=== PATIENT | male | born 1970 | race Caucasian/White ===

== ENCOUNTER 2022-08-03 15:29 | Observation (INO) | payer BC ==
[2022-08-03] MEDS ORDERED: FUROSEMIDE 40 MG/4 ML VIAL ONE ×2 (16:21)
[2022-08-03 16:32] LABS: Absolute Lymphocytes (CBC) 1.1 K/uL (0.7-4.9); Hematocrit 33.4 % (39.6-49.0); Lymphocytes % 20.5 % (15.3-44.8); MCV 86.1 fL (80-100); MPV 6.4 fL (7.6-11.3); RBC Red Blood Cell Count 3.88 M/uL (4.33-5.43)
[2022-08-03 16:33] LABS: Protime INR 1.28
--- NOTE | 2022-08-03 16:41 | RAD REPORT ---
EXAM DESCRIPTION: RAD - Chest Single View - 08/03/2022 4:25 pm CLINICAL HISTORY: DYSPNEA COMPARISON: No comparisons FINDINGS: Lines: None. Lungs: Diffuse prominence of the pulmonary vasculature. Pleural: No significant pleural effusions or pneumothorax. Cardiac: Cardiomegaly. Mediastinum: Within normal limits. Bones: No acute fractures. Other: None IMPRESSION: Interstitial edema/congestive heart failure.
[2022-08-03 16:49] LABS: Albumin 3.3 g/dL (3.4-5.0); Bilirubin Direct 0.5 mg/dL (0-0.2); Bilirubin Total 0.9 mg/dL (0.2-1.0); Potassium 4.1 mmol/L (3.5-5.1); Protein, Total 9.1 g/dL (6.4-8.2); Troponin High Sensitivity 24.7 pg/mL (<58.9)
--- NOTE | 2022-08-03 18:01 | EDPHYS ---
Physician Documentation [facility] Name: Salvador Catherine Jr Age: 51 yrs Sex: Male : 1970 Arrival Date: 08/03/2022 Time: 15:30 Bed 16 Private MD: ED Physician Davian Jonas HPI: 08/03 18:01 This 51 yrs old Male presents to ER via Ambulatory with complaints of Shortness Of kdr Breath, swelling all over. 18:01 Patient states that when he awoke this morning, he felt that he was in atrial kdr fibrillation. This occurs periodically. Normally he was able to partake in various activities that will convert him back to a normal sinus rhythm however that has not occurred today he attempted to mow the grass, on a riding mower, without conversion. He also tried taking a walk and other activities but was unable to convert himself back to what he felt was a normal sinus rhythm.. Onset: The symptoms/episode began/occurred suddenly, this morning, and became persistent. Severity of symptoms: At their worst the symptoms were mild in the emergency department the symptoms are unchanged. The patient has experienced similar episodes in the past, multiple times, but today's symptoms are worse, lasting longer. The patient has not recently seen a physician. Historical: - Allergies: 15:48 No Known Allergies; kb3 - Home Meds: 15:48 Lasix 40 mg Oral tab 1 tab once daily [Active]; spironolactone 25 mg Oral tab 1 tab kb3 once daily [Active]; - PMHx: 15:49 Atrial fibrillation; Bialteral leg edema; Covid; kb3 - PSHx: 15:49 None; kb3 - Immunization history:: Adult Immunizations up to date, Client reports having NOT received the Covid vaccine. Last tetanus immunization: up to date. - Social history:: Smoking status: Patient denies any tobacco usage or history of. ROS: 18:01 Constitutional: Negative for fever, chills, and weight loss, Eyes: Negative for injury, kdr pain, redness, and discharge, ENT: Negative for injury, pain, and discharge, Neck: Negative for injury, pain, and swelling, Abdomen/GI: Negative for abdominal pain, nausea, vomiting, diarrhea, and constipation, Back: Negative for injury and pain, : Negative for injury, bleeding, discharge, and swelling, MS/Extremity: Negative for injury and deformity, Skin: Negative for injury, rash, and discoloration, Neuro: Negative for headache, weakness, numbness, tingling, and seizure activity. Psych: Negative for depression, anxiety, suicide ideation, homicidal ideation, and hallucinations, Allergy/Immunology: Negative for hives, rash, and allergies, Endocrine: Negative for neck swelling, polydipsia, polyuria, polyphagia, and marked weight changes, Hematologic/Lymphatic: Negative for swollen nodes, abnormal bleeding, and unusual bruising. 18:01 Cardiovascular: Positive for palpitations, Negative for chest pain, edema, orthopnea. 18:01 Respiratory: Positive for shortness of breath, on exertion. Exam: 15:57 Constitutional: This is a well developed, well nourished patient who is awake, alert, kdr and in no acute distress. Head/Face: Normocephalic, atraumatic. Eyes: Pupils equal round and reactive to light, extra-ocular motions intact. Lids and lashes normal. Conjunctiva and sclera are non-icteric and not injected. Cornea within normal limits. Periorbital areas with no swelling, redness, or edema. Neck: Trachea midline, no thyromegaly or masses palpated, and no cervical lymphadenopathy. Supple, full range of motion without nuchal rigidity, or vertebral point tenderness. No Meningismus. Chest/axilla: Normal chest wall appearance and motion. Nontender with no deformity. No lesions are appreciated. Respiratory: Lungs have equal breath sounds bilaterally, clear to auscultation and percussion. No rales, rhonchi or wheezes noted. No increased work of breathing, no retractions or nasal flaring. Abdomen/GI: Soft, non-tender, with normal bowel sounds. No distension or tympany. No guarding or rebound. No evidence of tenderness throughout. Back: No spinal tenderness. No costovertebral tenderness. Full range of motion. Skin: Warm, dry with normal turgor. Normal color with no rashes, no lesions, and no evidence of cellulitis. MS/ Extremity: Pulses equal, no cyanosis. Neurovascular intact. Full, normal range of motion. Neuro: Awake and alert, GCS 15, oriented to person, place, time, and situation. Cranial nerves II-XII grossly intact. Motor strength 5/5 in all extremities. Sensory grossly intact. Cerebellar exam normal. Normal gait. Psych: Awake, alert, with orientation to person, place and time. Behavior, mood, and affect are within normal limits. 15:57 ECG was reviewed by the Attending Physician. Vital Signs: 15:47 BP 158 / 70; Pulse 119; Resp 24; Temp 98; Pulse Ox 100% ; Weight 131.54 kg; Height 5 kb3 ft. 10 in. (177.80 cm); Pain 0/10; 16:45 BP 134 / 78; Pulse 116; Resp 22; Pulse Ox 100% on R/A; kr3 17:45 BP 126 / 82; Pulse 110; Resp 22; Pulse Ox 100% on R/A; kr3 18:45 BP 129 / 85; Pulse 114; Resp 22; Pulse Ox 100% on R/A; kr3 20:23 BP 143 / 77; Pulse 107; Resp 22; Pulse Ox 100% on R/A; Pain 0/10; ke1 15:47 Body Mass Index 41.61 (131.54 kg, 177.80 cm) kb3 MDM: 18:00 Patient medically screened. kdr 18:01 Data reviewed: vital signs, nurses notes, lab test result(s), EKG, radiologic studies. kdr Counseling: I had a detailed discussion with the patient and/or guardian regarding: the historical points, exam findings, and any diagnostic results supporting the discharge/admit diagnosis, lab results, radiology results. 08/03 15:56 Order name: Basic Metabolic Panel [facility] 08/03 15:56 Order name: CBC with Diff [facility] 08/03 15:56 Order name: LFT's [facility] 08/03 15:56 Order name: NT PRO-BNP [facility] 08/03 15:56 Order name: PT-INR [facility] 08/03 15:56 Order name: Troponin HS [facility] 08/03 16:33 Order name: Protime (+INR); Complete Time: 17:57 EDMS 08/03 16:37 Order name: CBC with Automated Diff; Complete Time: 17:57 EDMS 08/03 16:49 Order name: Basic Metabolic Panel; Complete Time: 17:57 EDMS 08/03 16:49 Order name: Liver (Hepatic) Function; Complete Time: 17:57 EDMS 08/03 16:49 Order name: Troponin High Sensitivity; Complete Time: 17:57 EDMS 08/03 16:49 Order name: NT PRO-BNP; Complete Time: 17:57 EDMS 08/03 18:25 Order name: COVID-19 SARS RT PCR (Document "Date of Onset" if Symptomatic) 08/03 20:24 Order name: SARS-COV-2 RT PCR EDMS 08/03 15:56 Order name: XRAY Chest (1 view) [facility] 08/03 15:56 Order name: EKG; Complete Time: 15:58 [facility] 08/03 15:56 Order name: Cardiac monitoring; Complete Time: 20:24 [facility] 08/03 15:56 Order name: EKG - Nurse/Tech; Complete Time: 15:59 [facility] 08/03 15:56 Order name: IV Saline Lock; Complete Time: 16:18 [facility] 08/03 15:56 Order name: Labs collected and sent; Complete Time: 16:18 [facility] 08/03 15:56 Order name: O2 Per Protocol; Complete Time: 20:24 [facility] 08/03 15:56 Order name: O2 Sat Monitoring; Complete Time: 20:24 [facility] 08/03 16:41 Order name: RAD; Complete Time: 17:57 EDMS EC:57 Rate is 120 beats/min. Rhythm is regular, Sinus tachycardia with No ectopy. QRS Vassar is kdr Normal. IA interval is normal. QRS interval is normal. Clinical impression: Sinus tachycardia. Administered Medications: 16:47 Drug: Lasix (furosemide) 80 mg Route: IVP; Site: right antecubital; kr3 18:55 Follow up: Response: No adverse reaction kr3 20:30 Drug: Metoprolol TARTRATE 50 mg Route: PO; ke1 Disposition Summary: 08/03/22 18:00 Hospitalization Ordered Hospitalization Status: Observation kdr Provider: Esdras Infante Location: Telemetry/MedSurg (observation) kdr Condition: Fair kdr Problem: an acute exacerbation kdr Symptoms: have improved kdr Bed/Room Type: Standard kdr Room Assignment: 424(08/03/22 20:42) cg Diagnosis - Heart failure, unspecified kdr Forms: - Medication Reconciliation Form kdr - SBAR form kdr Signatures: Dispatcher [employer] EDMT Davian Jonas MD MD kdr Alexander Bhandari, LEMUEL-C [employer] [id number] Jacklyn Epps, PIPPA RN Russell Merino RN RN ke1 Sophy Prince, RN RN kr3 Sobia Lange, RN RN kb3 Corrections: (The following items were deleted from the chart) 18:04 18:00 Persistent atrial fibrillation - With rapid ventricular response kdr kdr 20:42 18:00 kdr cg
--- NOTE | 2022-08-03 18:01 | ER ---
Nurse's Notes [facility] Name: Salvador Catherine Jr Age: 51 yrs Sex: Male : 1970 Arrival Date: 08/03/2022 Time: 15:30 Bed 16 Private MD: Diagnosis: Heart failure, unspecified Presentation: 08/03 15:47 Chief complaint: Patient states: Pt reports increased generalized swelling, more so in kb3 bilateral legs, face and abdomen x1 week with associated increased SOB. Denies CP, cough, congestion. Coronavirus screen: Vaccine status: Patient reports being unvaccinated. Client denies travel out of the [place] in the last 14 days. Ebola Screen: Patient negative for fever greater than or equal to 101.5 degrees Fahrenheit, and additional compatible Ebola Virus Disease symptoms Patient denies exposure to infectious person. Patient denies travel to an Ebola-affected area in the 21 days before illness onset. No symptoms or risks identified at this time. Initial Sepsis Screen: Does the patient meet any 2 criteria? No. Patient's initial sepsis screen is negative. Does the patient have a suspected source of infection? No. Patient's initial sepsis screen is negative. Risk Assessment: Do you want to hurt yourself or someone else? Patient reports no desire to harm self or others. Onset of symptoms was July 27, 2022. 15:47 Method Of Arrival: Ambulatory 3 15:47 Acuity: YULY 3 kb3 Triage Assessment: 15:49 General: Appears in no apparent distress. Behavior is calm, cooperative. Pain: Denies kb3 pain. Respiratory: Reports shortness of breath Onset: The symptoms/episode began/occurred gradually, the patient has mild shortness of breath. Historical: - Allergies: 15:48 No Known Allergies; kb3 - Home Meds: 15:48 Lasix 40 mg Oral tab 1 tab once daily [Active]; spironolactone 25 mg Oral tab 1 tab kb3 once daily [Active]; - PMHx: 15:49 Atrial fibrillation; Bialteral leg edema; Covid; kb3 - PSHx: 15:49 None; kb3 - Immunization history:: Adult Immunizations up to date, Client reports having NOT received the Covid vaccine. Last tetanus immunization: up to date. - Social history:: Smoking status: Patient denies any tobacco usage or history of. Screenin:55 Abuse screen: Denies threats or abuse. Nutritional screening: No deficits noted. kr3 Tuberculosis screening: No symptoms or risk factors identified. Fall Risk IV access (20 points). Total Boothe Fall Scale indicates No Risk (0-24 pts). Assessment: 16:47 Reassessment: No changes from previously documented assessment. Patient and/or family kr3 updated on plan of care and expected duration. Pain level reassessed. Cardiovascular: Reports shortness of breath. Respiratory: Airway is patent Respiratory effort is labored. 17:45 Reassessment: No changes from previously documented assessment. Patient and/or family kr3 updated on plan of care and expected duration. Pain level reassessed. 18:54 Reassessment: No changes from previously documented assessment. Patient and/or family kr3 updated on plan of care and expected duration. Pain level reassessed. Vital Signs: 15:47 BP 158 / 70; Pulse 119; Resp 24; Temp 98; Pulse Ox 100% ; Weight 131.54 kg; Height 5 kb3 ft. 10 in. (177.80 cm); Pain 0/10; 16:45 BP 134 / 78; Pulse 116; Resp 22; Pulse Ox 100% on R/A; kr3 17:45 BP 126 / 82; Pulse 110; Resp 22; Pulse Ox 100% on R/A; kr3 18:45 BP 129 / 85; Pulse 114; Resp 22; Pulse Ox 100% on R/A; kr3 20:23 BP 143 / 77; Pulse 107; Resp 22; Pulse Ox 100% on R/A; Pain 0/10; ke1 15:47 Body Mass Index 41.61 (131.54 kg, 177.80 cm) kb3 ED Course: 15:30 Patient arrived in ED. am2 15:31 Davian Jonas MD is Attending Physician. kdr 15:40 Sophy Prince RN is Primary Nurse. kr3 15:48 Triage completed. kb3 15:49 Arm band placed on right wrist. Patient placed in an exam room. kb3 15:59 EKG done, by ED staff, reviewed by Davian Jonas MD. ss 16:16 Inserted saline lock: 22 gauge in right antecubital area, using aseptic technique. kr3 Blood collected. 18:00 Esdras Infante MD is Hospitalizing Provider. kdr 18:56 COVID-19 SARS RT PCR (Document "Date of Onset" if Symptomatic) Sent. kr3 19:33 Primary Nurse role handed off by Sophy Prince RN 19:43 Russell Lambert, PIPPA is Primary Nurse. ke1 Administered Medications: 16:47 Drug: Lasix (furosemide) 80 mg Route: IVP; Site: right antecubital; kr3 18:55 Follow up: Response: No adverse reaction kr3 20:30 Drug: Metoprolol TARTRATE 50 mg Route: PO; ke1 Outcome: 18:00 Decision to Hospitalize by Provider. kdr 21:52 Patient left the ED. ke1 Signatures: Davian Jonas MD MD [facility] Yoselin Gutierrez RN RN ss Moreno, Amanda am2 Marsh, Wendy Russell Lambert RN RN ke1 Sophy Prince, RN RN kr3 Sobia Lange RN RN kb3
--- NOTE | 2022-08-03 19:26 | P.HP ---
Certification for Inpatient Patient admitted to: Observation With expected LOS: <2 Midnights Patient will require the following post-hospital care: None Practitioner: I am a practitioner with admitting privileges, knowledge of patient current condition, hospital course, and medical plan of care. Services: Services provided to patient in accordance with Admission requirements found in Title 42 Section 412.3 of the Code of Federal Regulations Patient History Date of Service: 08/03/22 Primary Care Provider: None Reason for admission: CHF exacerbation History of Present Illness: 51-year-old male with history of chronic CHFunknown EF presents to the emergency department for swelling/dyspnea. He reports a known history of CHF but does not know what his ejection fraction is he is currently taking Lasix 40 mg daily as well as spironolactone 25 mg daily, he reports he has been compliant with his medications although over the course of the last week or so he has noticed significant increase in swelling in his lower extremities, face and abdomen. He is evaluated in the emergency department his labs were significant for sodium of 129 chloride of 93 glucose 149 D bili 0.5 BNP 245 chest x-ray was obtained which revealed interstitial edema/congestive heart failure. Patient currently on room air saturating well doing okay at rest but has dyspnea on exertion and significant edema. ED provider wishes to admit under observation for CHF exacerbation. Upon further questioning patient also admits to drinking approximately 30 beers per day, his last drink was around noon today and he has had between 6 and 8 beers today. We will monitor closely for signs of alcohol withdrawal. 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 moist/pink, EOMI, Sclerae nonicteric Neck: Supple, 2+ carotid pulse no bruit, No LAD, Without JVD or thyroid abnormality Respiratory: Diminished, Crackles/rales Cardiovascular: Regular rate/rhythm, Normal S1 S2, Edema (Anasarca, edema to the face, abdomen and lower extremities) Capillary refill: <2 Seconds Gastrointestinal: Normal bowel sounds, No tenderness Musculoskeletal: No tenderness Integumentary: No rashes Neurological: Normal speech, Normal strength at 5/5 x4 extr, Normal tone, Normal affect - Studies Laboratory Data (last 24 hrs) 08/03/22 16:10: PT 14.1 H, INR 1.28 08/03/22 16:10: WBC 5.40, Hgb 11.2 L, Hct 33.4 L, Plt Count 120 L 08/03/22 16:10: Sodium 129 L, Potassium 4.1, BUN 8, Creatinine 1.02, Glucose 149 H, Total Bilirubin 0.9, AST 42 H, ALT 33, Alkaline Phosphatase 119 H Assessment and Plan - Plan Assessment: Acute on chronic CHFunknown EF Mild hyponatremia Alcohol use disorder Plan: Acute on chronic CHFunknown EF: Unknown EF, patient recently moved back to the area from [facility]. Increase Lasix to 40 mg IV twice daily continue spironolactone. Patient also admits to drinking approximately 30 beers per day, he was counseled extensively on the need for alcohol cessation and the volume of fluids that he is taking in the excessive. We will monitor on telemetry, attempt obtain echocardiogram. Cardiology consult in place. Mild hyponatremia: Likely related to volume overload/alcohol use disorder. Continue IV Lasix monitor sodium level daily. Alcohol use disorder: Patient generally drinks about 30 beers per day his last drink was today around noon he has had about 6-8 beers today. Will monitor for signs of alcohol withdrawal and provide with as needed Librium for the time being. Patient counseled extensively on the need for alcohol cessation especially given his heart disease. DVT PPX: Lovenox Code status: Full Discharge Plan: Home Plan to discharge in: 24 Hours - Advance Directives Does patient have a Living Will: No Does patient have a Durable POA for Healthcare: No - Code Status/Comfort Care Code Status Assessed: Yes (Full code) Critical Care: No Time Spent Managing Pts Care (In Minutes): 70
[2022-08-03] MEDS ORDERED: chlordiazePOXIDE HCl 5 MG CAP PO PRN (19:51)
[2022-08-03] MEDS ORDERED: ONDANSETRON 4 MG/2 ML VIAL IV PRN (19:51)
[2022-08-03] MEDS ORDERED: METOPROLOL TAR 50 MG TAB ONE (20:26)
[2022-08-03 22:53] VITALS: BMI 58.5
[2022-08-04 06:39] LABS: Absolute Lymphocytes (CBC) 0.9 K/uL (0.7-4.9); Hematocrit 33.4 % (39.6-49.0); Lymphocytes % 14.9 % (15.3-44.8); MCV 88.1 fL (80-100); MPV 6.4 fL (7.6-11.3); RBC Red Blood Cell Count 3.79 M/uL (4.33-5.43)
[2022-08-04 07:02] LABS: Albumin 3.1 g/dL (3.4-5.0); Bilirubin Total 1.1 mg/dL (0.2-1.0); Magnesium 1.9 mg/dL (1.8-2.4); Potassium 4.1 mmol/L (3.5-5.1); Protein, Total 8.5 g/dL (6.4-8.2)
[2022-08-04 07:04] LABS: Thyroid Stimulating Hormone 4.39 uIU/mL (0.360-3.740)
[2022-08-04] MEDS ORDERED: ENOXAPARIN 40 MG/0.4 ML SQ SCH (09:00)
[2022-08-04] MEDS ORDERED: METOPROLOL TAR 50 MG TAB PO SCH (09:00)
[2022-08-04] MEDS ORDERED: SPIRONOLACTONE 25 MG TABLET PO SCH (09:00)
[2022-08-04] MEDS ORDERED: FUROSEMIDE 40 MG/4 ML VIAL IV SCH (09:00)
[2022-08-04 10:14] VITALS: O2SAT 100
[2022-08-04 11:34] VITALS: BP 132/68; TEMP 98.2
[2022-08-04] MEDS ORDERED: INFLUENZA VACCINE (for 6+ mo) 0.5 ML DOSE IMVAC ONE (12:00)
--- NOTE | 2022-08-04 13:06 | P.DS ---
Admission Date: 08/03/22 Discharge Date: 08/04/22 Primary Care Provider: None Disposition: ROUTINE DISCHARGE Discharge Condition: GOOD Reason for Admission: CHF exacerbation Consultations: CardiologyDr. Holloway Brief History of Present Illness: 51yo M, PMH: A. fib/a flutter , chronic CHF- unknown EF, untreated RACHEL, presented to ED due to swelling/dyspnea over last 1 week despite taking his chronic meds (lasix/spironolactone). Patient states this began 1 week ago shortly after starting antibiotics (Bactrim, ciprofloxacin) for a toe laceration. He denies any fevers/chills, no diarrhea, no nausea. Work-up in the ED noted mild hyponatremia, chest x-ray with some mild interstitial edema. He reported drinking 30 beers per day. Hospital Course: Problem list aflutter Acute on chronic CHFunknown EF Mild hyponatremia Alcohol use disorder untreated sleep apnea Patient presented with shortness of breath and increased lower extremity swelling. He was found to be in atrial flutter with HR in 120s. Heart rate improved with metoprolol down to 70-80s. He was given IV Lasix and Cardiology consulted. Patient was breathing comfortably on room air at rest with SpO2 > 99% Deemed stable for discharge home. Medications changed per Cardiology recommendations New: Metoprolol 50mg twice daily Eliquis 5mg twice daily Increased lasix from 40mg daily to twice daily Continue spironolactone 25mg daily Follow up: PCP within [address] Holloway in 1-2 weeks. Will need outpatient echocardiogram Recommend to discuss with PCP or see Sleep/[employer] Systems Administrator (Dr. Watkins) for updated sleep study and subsequent CPAP prescription Previously diagnosed with severe sleep apnea, and currently does not have CPAP machine. Vital Signs/Physical Exam: Temp Pulse Resp BP Pulse Ox 98.2 F 72 16 132/68 93 08/04/22 11:33 08/04/22 11:33 08/04/22 11:33 08/04/22 11:33 08/04/22 11:33 General: Alert, In no apparent distress, Oriented x3 HEENT: EOMI, Sclerae nonicteric Respiratory: Diminished Cardiovascular: Edema, Irregular heart rate/rhythm Gastrointestinal: Soft and benign, Non-distended, No tenderness Integumentary: No significant lesion, No tenderness/swelling Neurological: Normal speech, Normal strength at 5/5 x4 extr, Normal affect Laboratory Data at Discharge: WBC 6.00 K/uL (4.3-10.9) 08/04/22 05:43 Hgb 10.8 g/dL (13.6-17.9) L 08/04/22 05:43 Hct 33.4 % (39.6-49.0) L 08/04/22 05:43 Plt Count 109 K/uL (152-406) L 08/04/22 05:43 PT 14.1 SECONDS (9.5-12.5) H 08/03/22 16:10 INR 1.28 08/03/22 16:10 Sodium 130 mmol/L (136-145) L 08/04/22 05:43 Potassium 4.1 mmol/L (3.5-5.1) 08/04/22 05:43 BUN 13 mg/dL (7-18) 08/04/22 05:43 Creatinine 1.06 mg/dL (0.55-1.3) 08/04/22 05:43 Glucose 110 mg/dL (74-106) H 08/04/22 05:43 Magnesium 1.9 mg/dL (1.8-2.4) 08/04/22 05:43 Total Bilirubin 1.1 mg/dL (0.2-1.0) H 08/04/22 05:43 AST 38 U/L (15-37) H 08/04/22 05:43 ALT 28 U/L (12-78) 08/04/22 05:43 Alkaline Phosphatase 109 U/L (45-117) 08/04/22 05:43 Triglycerides 56 mg/dL (<150) 08/04/22 05:43 Cholesterol 161 mg/dL (<200) 08/04/22 05:43 HDL Cholesterol 79 mg/dL (40-60) H 08/04/22 05:43 Cholesterol/HDL Ratio 2.04 08/04/22 05:43 Home Medications: Spironolactone 1 tab PO DAILY 08/03/22 Apixaban [Eliquis] 5 mg PO BID 30 Days #60 tab 08/04/22 Furosemide [Lasix] 1 tab PO BID 30 Days #60 tab 08/04/22 Metoprolol Tartrate [Lopressor*] 50 mg PO BID 30 Days #60 tab 08/04/22 New Medications: Apixaban [Eliquis] 5 mg PO BID 30 Days #60 tab Furosemide [Lasix] 1 tab PO BID 30 Days #60 tab Metoprolol Tartrate [Lopressor*] 50 mg PO BID 30 Days #60 tab Physician Discharge Instructions: Patient presented with shortness of breath and increased lower extremity swelling. He was found to be in atrial flutter with HR in 120s. Heart rate improved with metoprolol down to 70-80s. He was given IV Lasix and Cardiology consulted. Patient was breathing comfortably on room air at rest with SpO2 > 99% Deemed stable for discharge home. Medications changed per Cardiology recommendations New: Metoprolol 50mg twice daily Eliquis 5mg twice daily Increased lasix from 40mg daily to twice daily Continue spironolactone 25mg daily Follow up: PCP within [address] Holloway in 1-2 weeks. Will need outpatient echocardiogram Recommend to discuss with PCP or see Sleep/[employer] Systems Administrator (Dr. Watkins) for updated sleep study and subsequent CPAP prescription Previously diagnosed with severe sleep apnea, and currently does not have CPAP machine. Diet: AHA Activity: Ad george Followup: Ariel Watkins MD [ACTIVE - CAN ADMIT] - Jeff Holloway MD [ACTIVE - CAN ADMIT] - NONE,NONE [Primary Care Provider] - Time spent managing pt's care (in minutes): 45
--- NOTE | 2022-08-05 07:46 | EKG ---
Test Date: 2022-08-03 Test Time: 15:52:53 Raise Drill Operator: MELANIE MEASUREMENT RESULTS: Intervals: Rate: 120 WY: 200 QRSD: 100 QT: 338 QTc: 477 [place]: P: 100 WY: 200 QRS: 77 T: -36 INTERPRETIVE STATEMENTS: Sinus tachycardia Nonspecific T wave abnormality Abnormal ECG No previous ECG available for comparison Electronically Signed On 08-05-22 07:44:17 CDT by Jeff Holloway
--- NOTE | 2022-08-05 10:19 | CON ---
Date of Consultation: 08/04/2022 Reason For Consultation: Congestive heart failure. History Of Present Illness: Mr. Catherine was just moved to this part of [place] recently for employment. He was actually born and raised in [place]. He has a history of alcohol abuse. Has had a normal hear t catheterization, but was told he has congestive heart failure, atrial fibrillation. He is status p ost cardioversion at one point. He also has a history of COVID, morbid obesity. Had gained 75 pound s recently. Came in with PND, orthopnea, pedal edema, palpitation, but no syncope. Denied any fever or chills. When he had his cardioversion, apparently at one point he was placed on Eliquis and meto prolol, but his head up operator helper stopped it because he went back in normal rhythm and has been taking Las ix and Aldactone only for congestive heart failure, unknown ejection fraction. Past Medical History: As stated above. Allergies: NONE. Review of Systems: Negative. Social History: Positive for alcohol. Family History: Negative. Medications: Include Aldactone and Lasix only. Physical Examination: Vital Signs: By the time I saw him, he was still in atrial flutter, rate controlled at 100, afebrile . HEENT: Negative. Neck: Supple with no bruit. Chest: Clear. Cardiac: Revealed atrial flutter. Abdomen: Obese. Extremities: Revealed chronic venous changes and 1+ edema. Neurologic: He was nonfocal. Skin: Dry and intact. Diagnostic Data: Troponin was negative. BNP is 245. EKG showed atrial flutter. Chest x-ray showed CHF. Impression And Plan: 1.Atrial flutter and cardiomyopathy, possibly secondary to alcohol. He has normal coronaries. 2.Recent COVID. 3.Obesity. 4.Atrial fibrillation, status post cardioversion. He is still in atrial flutter now. We would like for him to be on Lasix, Aldactone, metoprolol, Eliquis, discharge him home. I will make an appointm ent for him as soon as possible to have an echocardiogram and followup. If he remains in atrial flut ter, we will cardiovert him electrically, at which point, I will probably switch him to Multaq. He w as instructed to try to quit alcohol completely. JENNA/ZECHARIAH Voice ID: [id number] Report ID: [id number]
== END 2022-08-04 13:43 | disposition home or self-care (01) ==
LOC: ER 15:29 → ERHOLD 19:47 → 4TH 20:45
PROVIDERS: ADMIT Hospitalist; ATTEND Hospitalist
DX: I50.9 Heart failure, unspecified (principal); I48.91 Unspecified atrial fibrillation; I48.92 Unspecified atrial flutter; E87.1 Hypo-osmolality and hyponatremia; F10.20 Alcohol dependence, uncomplicated; G47.30 Sleep apnea, unspecified; E66.9 Obesity, unspecified; Z71.41 Alcohol abuse counseling and surveillance of alcoholic; Z68.43 Body mass index [BMI] 50.0-59.9, adult; Z82.49 Family history of ischemic heart disease and other diseases of the circulatory system; Z20.822 Contact with and (suspected) exposure to COVID-19
CPT/HCPCS: 93005; 85025 ×2; 80048; 36415; 83735; 85610; 80061; 80076; 84443; 84484; 84439; 80053; 83880; 71045; 96374; 99284; U0003; J1940 ×3; G0378 ×3; J1650

== ENCOUNTER 2022-08-29 14:42 | Inpatient (IN) | payer BC ==
[2022-08-29] MEDS ORDERED: FUROSEMIDE 40 MG/4 ML VIAL ONE (15:29)
[2022-08-29 15:33] LABS: Hematocrit 30.3 % (39.6-49.0); Lymphocytes % 27.3 % (15.3-44.8); MCV 88.6 fL (80-100); MPV 6.1 fL (7.6-11.3); RBC Red Blood Cell Count 3.42 M/uL (4.33-5.43)
[2022-08-29 16:02] LABS: Magnesium 1.7 mg/dL (1.8-2.4); Potassium 3.2 mmol/L (3.5-5.1)
[2022-08-29 16:23] LABS: Troponin High Sensitivity 130.9 pg/mL (<58.9)
--- NOTE | 2022-08-29 16:38 | RAD REPORT ---
EXAM DESCRIPTION: RAD - Chest Single View - 08/29/2022 4:17 pm CLINICAL HISTORY: DYSPNEA COMPARISON: Portable 08/03/2022 TECHNIQUE: AP portable chest image was obtained 08/29/2022 4:17 pm . FINDINGS: Under penetrated technique and very large body habitus accentuate chest findings. This is further accentuated by shallow inspiration. No peripheral mass or consolidation. Patient has very large cardiac silhouette which could obscure me dial lung base abnormalities. Vascular engorgement is present. No pneumothorax or large pleural effus ion. Smaller pleural effusions could be masked. No acute bony abnormality seen. No acute aortic findi ngs suspected. IMPRESSION: CHF/volume overload pattern similar to August 03 imaging.
[2022-08-29 16:42] LABS: SARS-CoV-2 Antigen Rapid Res Negative (Negative)
--- NOTE | 2022-08-29 16:59 | ER ---
Nurse's Notes [facility] Name: Salvador Catherine Jr Age: 51 yrs Sex: Male : 1970 Arrival Date: 08/29/2022 Time: 14:49 Bed 4 Private MD: Diagnosis: Heart failure, unspecified;Dyspnea;Generalized edema Presentation: 08/29 14:53 Chief complaint: Patient states: Pt reports lasix not working as well - takes 40mg 2 ld1 daily. Pt called Dr. Elmore - c/o weight gain increasing 20lb in 1.5 weeks. sent pt to ER for fluid overload. Pt c/o genital swelling, SOB, TOM leg swelling, coughing, wheezing. Coronavirus screen: At this time, the client does not indicate any symptoms associated with coronavirus-19. Ebola Screen: No symptoms or risks identified at this time. Initial Sepsis Screen: Does the patient meet any 2 criteria? No. Patient's initial sepsis screen is negative. Does the patient have a suspected source of infection? No. Patient's initial sepsis screen is negative. Risk Assessment: Do you want to hurt yourself or someone else? Patient reports no desire to harm self or others. Onset of symptoms was August 29, 2022. 14:53 Method Of Arrival: Wheelchair ld1 14:53 Acuity: YULY 3 ld1 Triage Assessment: 14:55 General: Appears in no apparent distress. comfortable, Behavior is calm, cooperative, ld1 appropriate for age. Pain: Denies pain. EENT: No signs and/or symptoms were reported regarding the EENT system. Neuro: Level of Consciousness is awake, alert, obeys commands, Oriented to person, place, time, situation, Appropriate for age. Cardiovascular: Capillary refill < 3 seconds Patient's skin is warm and dry. Respiratory: Airway is patent Respiratory effort is even, unlabored. GI: Abdomen is round distended, obese. : No signs and/or symptoms were reported regarding the genitourinary system. Derm: No signs and/or symptoms reported regarding the dermatologic system. Musculoskeletal: No signs and/or symptoms reported regarding the musculoskeletal system. Historical: - Home Meds: 14:55 Lasix 40 mg Oral tab 1 tab once daily [Active]; spironolactone 25 mg Oral tab 1 tab ld1 once daily [Active]; metoprolol tartrate 25 mg Oral tab 1 tab 2 times per day [Active]; Eliquis 5 mg oral tab 1 tab 2 times per day [Active]; - PMHx: 14:55 Atrial fibrillation; Bialteral leg edema; COVID; ld1 - PSHx: 14:55 None; ld1 - Immunization history:: Adult Immunizations up to date, Client reports having NOT received the Covid vaccine. - Social history:: Smoking status: Patient denies any tobacco usage or history of. Patient uses alcohol, occasionally. Screenin:17 Abuse screen: Denies threats or abuse. Nutritional screening: No deficits noted. jd3 Tuberculosis screening: No symptoms or risk factors identified. Fall Risk Ambulatory Aid- None/Bed Rest/Nurse Assist (0 pts). Gait- Normal/Bed Rest/Wheelchair (0 pts) Mental Status- Oriented to own ability (0 pts). Total Boothe Fall Scale indicates No Risk (0-24 pts). Assessment: 15:10 General: Appears in no apparent distress. uncomfortable, Behavior is calm, cooperative, jd3 appropriate for age. Pain: Complains of pain in right foot, left foot, right leg and left leg Quality of pain is described as aching, tender, Is continuous, Aggravated by weight bearing. Neuro: Evans Agitation-Sedation Scale (RASS): 0 - Alert and Calm Level of Consciousness is awake, alert, obeys commands, Oriented to person, place, time, situation. Cardiovascular: Denies chest pain, Heart tones present Capillary refill < 3 seconds Patient's skin is warm and dry. Respiratory: Reports shortness of breath on exertion Airway is patent Respiratory effort is even, unlabored, Respiratory pattern is regular, symmetrical, Breath sounds are clear bilaterally. Denies cough. GI: Patient currently denies diarrhea, nausea, vomiting. : Reports swelling in the peroneal area. EENT: No signs and/or symptoms were reported regarding the EENT system. Derm: Skin is intact, Skin is dry, Skin is normal, Skin temperature is warm. Musculoskeletal: Circulation, motion, and sensation intact. Range of motion: intact in all extremities, Swelling present in groin, right foot, left foot, right leg and left leg. 16:08 Reassessment: Patient appears in no apparent distress at this time. Patient and/or jd3 family updated on plan of care and expected duration. Pain level reassessed. Patient is alert, oriented x 3, equal unlabored respirations, skin warm/dry/pink. 17:05 Reassessment: Patient appears in no apparent distress at this time. Patient and/or jd3 family updated on plan of care and expected duration. Pain level reassessed. Patient is alert, oriented x 3, equal unlabored respirations, skin warm/dry/pink. awaiting results. 18:53 Reassessment: Patient appears in no apparent distress at this time. Patient and/or jd3 family updated on plan of care and expected duration. Pain level reassessed. Patient is alert, oriented x 3, equal unlabored respirations, skin warm/dry/pink. pt informed of ER HOLD status. 20:23 Reassessment: Attempted to call to give report, left on hold for 8 minutes, will call vc1 back. Vital Signs: 14:53 BP 116 / 48; Pulse 100; Resp 20; Temp 97.7(O); Pulse Ox 98% on R/A; Weight 199.13 kg; ld1 Height 5 ft. 10 in. (177.80 cm); Pain 0/10; 18:54 BP 117 / 66; Pulse 98; Resp 19; Pulse Ox 97% on R/A; jd3 14:53 Body Mass Index 62.99 (199.13 kg, 177.80 cm) ld1 ED Course: 14:49 Patient arrived in ED. mr 14:55 Triage completed. ld1 14:55 Arm band placed on right wrist. ld1 14:58 Juan Carlos Anderson DO is Attending Physician. ms3 14:58 Derek Poole, RN is Primary Nurse. jd3 15:17 Patient has correct armband on for positive identification. Bed in low position. Call jd3 light in reach. Side rails up X 1. Adult w/ patient. Client placed on continuous cardiac and pulse oximetry monitoring. NIBP monitoring applied. patient monitor on. Pulse ox on. NIBP on. 15:35 Inserted saline lock: 20 gauge in right antecubital area, using aseptic technique. jd3 Blood collected. 16:19 XRAY Chest (1 view) In Process Unspecified. EDMS 16:58 Santiago Dennis MD is Hospitalizing Provider. ms3 20:25 Primary Nurse role handed off by Derek Poole RN vc1 20:31 Dari Lei, RN is Primary Nurse. vc1 22:11 No provider procedures requiring assistance completed. Patient admitted, IV remains in vc1 place. Administered Medications: 15:40 Drug: Lasix (furosemide) 40 mg Route: IVP; Site: right antecubital; jd3 16:40 Follow up: Response: No adverse reaction jd3 Medication: 15:17 VIS not applicable for this client. jd3 Output: 16:07 Urine: 1700ml (Voided); Total: 1700ml. mb8 18:30 Urine: 1800ml (Voided); Total: 3500ml. mb8 Outcome: 16:59 Decision to Hospitalize by Provider. ms3 22:11 Admitted to Tele accompanied by tech, via wheelchair, room 426. vc1 22:11 Condition: good 22:11 Instructed on the need for admit. 22:11 Patient left the ED. vc1 Signatures: Dispatcher [employer] EDKS Teena Bridges mr Derek Poole RN RN jd3 Sims, Marcus, DO ms3 Lyly Thorpe RN RN ld1 Dari Lei RN RN vc1 Anthony Strickland RN RN mb8
--- NOTE | 2022-08-29 17:00 | EDPHYS ---
Physician Documentation [facility] Name: Salvador Catherine Jr Age: 51 yrs Sex: Male : 1970 Arrival Date: 08/29/2022 Time: 14:49 Bed 4 Private MD: ED Physician Juan Carlos Anderson HPI: 08/29 15:30 This 51 yrs old Male presents to ER via Wheelchair with complaints of Swelling of Lower ms3 Extremity. 15:30 The patient presents with swelling. The complaints affect the Bilateral lower ms3 extremities. Context: the patient can fully bear weight, the patient is able to ambulate. Onset: The symptoms/episode began/occurred 2 day(s) ago. Modifying factors: The symptoms are alleviated by nothing. the symptoms are aggravated by nothing. Associated signs and symptoms: Pertinent positives: Shortness of breath. 51-year-old male presents with past medical history of atrial fibrillation, bilateral lower extremity edema, COVID, congestive heart failure for bilateral lower extremity swelling. Patient denies pain. Patient denies alleviating or inciting factors. Patient states his Lasix dose was recently increased to 40 mg twice daily by his glass loading equipment tender, Dr. Elmore.. Historical: - Home Meds: 14:55 Lasix 40 mg Oral tab 1 tab once daily [Active]; spironolactone 25 mg Oral tab 1 tab ld1 once daily [Active]; metoprolol tartrate 25 mg Oral tab 1 tab 2 times per day [Active]; Eliquis 5 mg oral tab 1 tab 2 times per day [Active]; - PMHx: 14:55 Atrial fibrillation; Bialteral leg edema; COVID; ld1 - PSHx: 14:55 None; ld1 - Immunization history:: Adult Immunizations up to date, Client reports having NOT received the Covid vaccine. - Social history:: Smoking status: Patient denies any tobacco usage or history of. Patient uses alcohol, occasionally. ROS: 15:30 Constitutional: Negative for fever, and chills. ENT: Negative for injury, pain, and ms3 discharge, Neck: Negative for injury, pain, and swelling, Cardiovascular: Negative for chest pain, and palpitations. 15:30 Abdomen/GI: Negative for abdominal pain, nausea, vomiting, diarrhea, and constipation. 15:30 Skin: Negative for injury, rash, and discoloration. 15:30 Respiratory: Positive for dyspnea on exertion, shortness of breath. 15:30 MS/extremity: Positive for swelling. 15:30 All other systems are negative. Exam: 15:30 Constitutional: This is a well developed, well nourished patient who is awake, alert, ms3 and in no acute distress. Head/Face: Normocephalic, atraumatic. Neck: Trachea midline, no cervical lymphadenopathy. Supple, full range of motion without nuchal rigidity, or vertebral point tenderness. No Meningismus. Chest/axilla: Normal chest wall appearance and motion. Nontender with no deformity. Cardiovascular: Regular rate and rhythm with a normal S1 and S2. No gallops, murmurs, or rubs. Normal PMI, no JVD. No pulse deficits. Respiratory: Lungs have equal breath sounds bilaterally, clear to auscultation and percussion. No rales, rhonchi or wheezes noted. No increased work of breathing, no retractions or nasal flaring. 15:30 Abdomen/GI: Inspection: obese Bowel sounds: normal, Palpation: abdomen is soft and non-tender, Edema of lower abdomen. 15:30 Musculoskeletal/extremity: Extremities: noted in the Right and Left leg: swelling, 4+ edema. 15:32 ECG was reviewed by the Attending Physician. ms3 Vital Signs: 14:53 BP 116 / 48; Pulse 100; Resp 20; Temp 97.7(O); Pulse Ox 98% on R/A; Weight 199.13 kg; ld1 Height 5 ft. 10 in. (177.80 cm); Pain 0/10; 18:54 BP 117 / 66; Pulse 98; Resp 19; Pulse Ox 97% on R/A; jd3 14:53 Body Mass Index 62.99 (199.13 kg, 177.80 cm) ld1 MDM: 15:17 Patient medically screened. ms3 15:34 Differential diagnosis: CHF vs ACS vs Renal insufficiency. ms3 21:02 Data reviewed: vital signs, nurses notes, lab test result(s), EKG, radiologic studies, ms3 and as a result, I will admit patient. Counseling: I had a detailed discussion with the patient and/or guardian regarding: the historical points, exam findings, and any diagnostic results supporting the discharge/admit diagnosis, lab results, radiology results, the need for further work-up and treatment in the hospital. ED course: Discussed case with Dr. Dennis and he accepts patient. All questions were answered. Patient remained in stable condition in the emergency department.. 08/29 15:17 Order name: Basic Metabolic Panel; Complete Time: 16:26 ms3 08/29 15:17 Order name: CBC with Diff; Complete Time: 16:26 ms3 08/29 15:17 Order name: Magnesium; Complete Time: 16:26 ms3 08/29 15:17 Order name: NT PRO-BNP; Complete Time: 16:26 ms3 08/29 15:17 Order name: Troponin HS; Complete Time: 16:26 ms3 08/29 15:36 Order name: SARS RAPID; Complete Time: 16:57 ms3 08/29 15:17 Order name: XRAY Chest (1 view); Complete Time: 16:57 ms3 08/29 19:52 Order name: Protime (+INR) EDMS 08/29 20:26 Order name: Phosphorus EDMS 08/29 20:26 Order name: T4 Free EDMS 08/29 20:26 Order name: Magnesium EDMS 08/29 20:26 Order name: Thyroid Stimulating Hormone EDMS 08/29 21:59 Order name: Troponin High Sensitivity EDMS 08/29 15:17 Order name: EKG; Complete Time: 15:18 ms3 08/29 15:17 Order name: Cardiac monitoring; Complete Time: 15:18 ms3 08/29 15:17 Order name: EKG - Nurse/Tech; Complete Time: 15:27 ms3 08/29 15:17 Order name: IV Saline Lock; Complete Time: 15:26 ms3 08/29 15:17 Order name: Labs collected and sent; Complete Time: 15:26 ms3 08/29 15:17 Order name: O2 Per Protocol; Complete Time: 15:18 ms3 08/29 15:17 Order name: O2 Sat Monitoring; Complete Time: 15:18 ms3 EC:32 Rate is 92 beats/min. Rhythm is irregularly irregular. QRS [place] is Normal. QRS interval ms3 is normal. Clinical impression: Atrial Fibrillation. Interpreted by me. Reviewed by me. Administered Medications: 15:40 Drug: Lasix (furosemide) 40 mg Route: IVP; Site: right antecubital; jd3 16:40 Follow up: Response: No adverse reaction jd3 Disposition Summary: 08/29/22 16:59 Hospitalization Ordered Hospitalization Status: Inpatient Admission ms3 Provider: Santiago Dennis ms3 Condition: Stable ms3 Problem: new ms3 Symptoms: are unchanged ms3 Bed/Room Type: Standard ms3 Location: Telemetry/MedSurg (Inpatient)(08/29/22 20:09) eb1 Room Assignment: 426(08/29/22 20:09) eb1 Diagnosis - Heart failure, unspecified ms3 - Dyspnea ms3 - Generalized edema ms3 Forms: - Medication Reconciliation Form ms3 - SBAR form ms3 Signatures: Dispatcher [employer] Derek Weir RN RN jd3 Asia Santana RN RN eb1 Juan Carlos Anderson DO DO ms3 Lyly Thorpe RN RN ld1 Corrections: (The following items were deleted from the chart) 18:43 16:59 Telemetry/MedSurg (Inpatient) ms3 eb1 18:43 16:59 ms3 eb1 20:09 18:43 [facility] ER HOLD eb1 eb1 20:09 18:43 ERHOLD- eb1 eb1
[2022-08-29] MEDS ORDERED: ACETAMINOPHEN 325 MG TABLET PO PRN (18:05)
[2022-08-29] MEDS ORDERED: ONDANSETRON 4 MG/2 ML VIAL IV PRN (18:14)
--- NOTE | 2022-08-29 18:24 | P.HP ---
Certification for Inpatient Patient admitted to: Inpatient With expected LOS: >2 Midnights Patient will require the following post-hospital care: None Practitioner: I am a practitioner with admitting privileges, knowledge of patient current condition, hospital course, and medical plan of care. Services: Services provided to patient in accordance with Admission requirements found in Title 42 Section 412.3 of the Code of Federal Regulations Patient History Date of Service: 08/29/22 Reason for admission: Generalizesd swelling, SOB History of Present Illness: Patient is a 51-year-old male with a past medical history significant for CHF, alcohol abuse, atrial fibrillation, hypertension who presents with complaint of generalized edema and shortness of breath that has been ongoing for the past 1 and 1/2 weeks but became worse in the last 2 days. Patient reported that he used to drink 30 bottles of beer every day and patient gradually phased himself out of alcohol drinking. His last drink was a week and a half ago. Patient denies any withdrawal symptoms. Patient reported that he had a syncopal episode 3 days ago due to dizziness after he stood up. Patient denies any hitting his head. Patient reported associated signs and symptoms of dizziness and cough. Patient currently denies any other signs and symptoms. Shortness of breath is aggravated with exertion and relieved by nothing. Patient reported that he recently had an echocardiogram done with his stubber 2 weeks ago. Patient decided to present to the hospital due to worsening symptoms. 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[employer], lives at home with his - Family History Father -: Heart disease Mother -: Heart disease - Social History Smoking Status: Current every day smoker Counseled patient to stop smoking for: less than 10 minutes Smoking therapy provided: Yes Patient receptive to therapy: Yes Alcohol use: Yes CD- Drugs: No Caffeine use: No Place of Residence: Home Review of Systems General: Unremarkable Eyes: Unremarkable ENT: Unremarkable Respiratory: Cough, Shortness of Breath Cardiovascular: Edema Gastrointestinal: Distention Genitourinary: Unremarkable Musculoskeletal: Pedal edema, Other (Generalized swelling ) Integumentary: Unremarkable Neurological: Other (Dizziness) Lymphatics: Unremarkable Physical Examination - Physical Exam General: Alert, In no apparent distress, Oriented x3, Cooperative HEENT: Atraumatic, PERRLA, Mucous membr. moist/pink, EOMI, Sclerae nonicteric Neck: Supple, 2+ carotid pulse no bruit, No LAD, Without JVD or thyroid abnormality Respiratory: Clear to auscultation bilaterally, Diminished Cardiovascular: Normal S1 S2, Edema, Irregular heart rate/rhythm Capillary refill: <2 Seconds Gastrointestinal: Normal bowel sounds, Distended Musculoskeletal: No clubbing, No contractures, No erythema, Swelling Integumentary: No rashes, No breakdown, No significant lesion, No erythema Neurological: Normal gait, Normal speech, Normal tone, Normal affect Lymphatics: No axilla or inguinal lymphadenopathy - Studies Laboratory Data (last 24 hrs) 08/29/22 15:25: WBC 3.60 L, Hgb 9.8 L, Hct 30.3 L, Plt Count 105 L 08/29/22 15:25: Sodium 133 L, Potassium 3.2 L, BUN 8, Creatinine 1.23, Glucose 153 H, Magnesium 1.7 L Assessment and Plan - Plan --Acute on chronic systolic CHF exacerbation. Continue diuresis with Lasix. Patient reported recent echocardiogram with his stubber 2 weeks ago. Daily weight and strict I/O. Cardiology consulted. We will further recommendations. --Alcohol abuse. Patient reported drinking about 30 bottles of beer daily before 2 weeks ago. Patient phased himself out of drinking. Patient reported that his last drink was 1 and half weeks ago. We will continue to monitor for withdrawal symptoms. -- Super obesity. BMI greater than 50. Patient counseled on weight reduction, diet and exercise therapy. --Atrial fibrillation. Continue Eliquis -- Hypertension. Stable. Continue home medications. --Elevated troponin. Likely secondary to demand ischemia. Telemetry to monitor for any significant arrhythmia. Further mgt per stubber -- Elevated D-dimer. CTA PE protocol to rule out PE. Continue supportive care --Nicotine dependence. Patient counseled on tobacco cessation and placed on nicotine patch. -- DVT prophylaxis Lovenox subQ Discharge Plan: Home Plan to discharge in: Greater than 2 days - Advance Directives Does patient have a Living Will: No Does patient have a Durable POA for Healthcare: No - Code Status/Comfort Care Code Status Assessed: Yes Physician Review: Patient Assessed, Agree with Above Assessment and Plan Critical Care: No
[2022-08-29] MEDS ORDERED: POTASSIUM CL SA 10 MEQ TAB PO ONE (19:00)
[2022-08-29 19:52] LABS: Protime INR 1.37
[2022-08-29 20:09] LABS: Magnesium 1.7 mg/dL (1.8-2.4); Phosphorus 3.2 mg/dL (2.5-4.9)
[2022-08-29 20:26] LABS: Thyroid Stimulating Hormone 7.49 uIU/mL (0.360-3.740)
[2022-08-29] MEDS: ENOXAPARIN 40 MG/0.4 ML SQ SCH (22:31)
[2022-08-29] MEDS: ASPIRIN 325 MG TAB PO SCH (22:31)
[2022-08-29 23:17] LABS: Specific Gravity < 1.005 (1.005-1.030); Urine Bilirubin NEGATIVE (Negative); Urine Blood Negative (Negative); Urine Clarity Clear (Clear); Urine Color Light-Yellow (Yellow); Urine Glucose NEGATIVE (Negative); Urine Protein NEGATIVE (Negative); Urine Urobilinogen Normal (Normal); Urine pH 6.5 (5.0-7.0)
[2022-08-30 03:52] LABS: Hematocrit 31.4 % (39.6-49.0); Lymphocytes % 25.7 % (15.3-44.8); MCV 88.9 fL (80-100); MPV 6.6 fL (7.6-11.3); RBC Red Blood Cell Count 3.54 M/uL (4.33-5.43)
[2022-08-30 04:05] LABS: Potassium 3.1 mmol/L (3.5-5.1)
[2022-08-30] MEDS: ENOXAPARIN 40 MG/0.4 ML SQ SCH (08:28)
[2022-08-30] MEDS: FUROSEMIDE 40 MG/4 ML VIAL IV SCH ×2 (08:28→17:08)
[2022-08-30] MEDS: FOLIC ACID 1 MG TABLET PO SCH (08:29)
[2022-08-30] MEDS: ASPIRIN 325 MG TAB PO SCH (08:29)
[2022-08-30] MEDS: THIAMINE HCL 100 MG TABLET PO SCH (08:29)
[2022-08-30] MEDS ORDERED: POTASSIUM CL SA 10 MEQ TAB PO ONE (09:00)
--- NOTE | 2022-08-30 14:32 | EKG ---
Test Date: 2022-08-29 Test Time: 15:32:50 [employer] Sales Manager: SALMA MEASUREMENT RESULTS: Intervals: Rate: 92 MD: 204 QRSD: 104 QT: 362 QTc: 447 [place]: P: -28 MD: 204 QRS: 85 T: -83 INTERPRETIVE STATEMENTS: A fib ST & T wave abnormality, consider inferior ischemia ST & T wave abnormality, consider anterolateral ischemia Abnormal ECG Compared to ECG 08/03/2022 15:52:53 ST (T wave) deviation now present Possible ischemia now present Sinus tachycardia no longer present T-wave abnormality no longer present Electronically Signed On 08-30-22 14:29:52 CDT by Montez Elmore
--- NOTE | 2022-08-30 19:52 | P.PN ---
Subjective Date of Service: 08/30/22 Chief Complaint: Generalizesd swelling, SOB No acute events overnight. He reports good urine output with furosemide. He reports that his breathing is slightly improved compared to yesterday. He denies chest pain or palpitations. Review of Systems 10-point ROS is otherwise unremarkable Respiratory: Shortness of Breath Cardiovascular: Orthopnea Physical Examination - Vital Signs Temperature: 98.7 F Blood Pressure: 119/56 Pulse: 101 Respirations: 18 Pulse Ox (%): 96 - Physical Exam General: Alert, In no apparent distress, Oriented x3 HEENT: Atraumatic, PERRLA, Mucous membr. moist/pink, EOMI, Sclerae nonicteric Neck: JVD not distended (difficult to assess due to habitus) Respiratory: Diminished, Crackles/rales (bibasilar) Cardiovascular: Normal pulses, Regular rate/rhythm, Normal S1 S2, No gallops, No rubs, No murmurs, Edema (3-4+ pitting BLE) Gastrointestinal: Normal bowel sounds, Soft and benign, Non-distended, No tenderness, No rebound, No guarding Musculoskeletal: No clubbing Integumentary: No rashes Neurological: Normal speech, Cranial nerves 3-12 intact, Normal affect Assessment And Plan - Plan # Acute on Chronic Decompensated Congestive Heart Failure (Unknown Ejection Fraction) - Consult Cardiology and spoke with Dr. Elmore - recommendations appreciated - Ordered transthoracic echocardiogram - Diuresis with IV furosemide for today - Daily weights - Strict I/O - Cardiac diet, 1.5 L fluid restriction, 2 g Na restriction # Type II Non-ST Segment Elevation Myocardial Infarction (Demand Ischemia) secondary to above # Hypertension - Cardiology consulted - recommendations appreciated - Troponin trend: 130.9 -> 134.4 -> 119.1 - Continue aspirin # Alcohol Use Disorder - Last alcoholic beverage was ~6 days ago - low likelihood for alcohol withdrawal syndrome - Offered chlordiazepoxide, but he declined - Ordered thiamine, folic acid # Chronic Atrial Fibrillation - Continue home metoprolol, apixaban # Tobacco Use Disorder - Tobacco cessation counseling provided - Nicotine patch available # Morbid Obesity - BMI 61.2 kg/m2 - Lifestyle modifications Santiago Dennis M.D.
[2022-08-30] MEDS: APIXABAN 5 MG TABLET PO SCH (21:03)
[2022-08-30] MEDS: METOPROLOL TAR 50 MG TAB PO SCH (21:04)
--- NOTE | 2022-08-31 01:08 | CON ---
Date of Consultation: 08/30/2022 Reason For Consultation: Heart failure exacerbation. History Of Present Illness: This is a 51-year-old male with history of CHF, alcohol abuse, and atria l fibrillation who presented to emergency room with worsening shortness of breath, lower extremity ed noemy, and orthopnea. I saw him in the office recently and increased his Lasix; however, he is not uri nating very well. He was on 40 mg twice a day at home. He was admitted for congestive heart failure exacerbation. Past Medical History: As outlined above in HPI. Medications: Refer to reconciliation sheet for detailed list. Allergies: NO KNOWN DRUG ALLERGIES. Family History: No premature coronary artery disease or cancer. Social History: He smokes about a pack per day and drinks alcohol on a regular basis, he is trying t o cut down. Does not use any drugs. Review of Systems: All systems reviewed and are negative except for what is mentioned in HPI. Physical Examination: Vital Signs: Reviewed. Head And Neck: Pupils are equal and reactive to light. Intact eye movements. No JVD. No cervical lymphadenopathy. Neck: Supple. Thyroid is not enlarged. Lungs: Decreased breathing sounds with crackles on bases. No accessory muscle use or muscle retract ion. Heart: Irregular. No extra sounds. Abdomen: Soft, nontender. Bowel sounds positive. No organomegaly. No masses or hernia. No rigidi ty or rebound. Extremities: No clubbing or cyanosis. Intact pulses. Skin: No rashes. Neurologic: Alert, awake, and oriented x3. No acute focal deficits appreciated. Lymph Nodes: No cervical or axillary lymphadenopathy. Investigations: Labs from earlier were reviewed. BUN is 8 and creatinine is 1.05. Assessment And Recommendation: 1.Acute congestive heart failure exacerbation, unknown ejection fraction. We will look at his recor ds in my office to obtain this information and continue IV diuresis. The patient will need to have a ggressive diuresis for 2-3 days at least and monitor BUN, creatinine, electrolytes and strict low-maria a t diet. 2.Atrial fibrillation, his rate is controlled for now. Clinical management and I recommend anticoag ulation with apixaban 5 mg twice a day. 3.Elevated troponin, this is likely due to demand and is trending down. Please obtain echocardiogra m if it was not done recently and already assessed. SR/MODL Voice ID: [id number] Report ID: [id number]
[2022-08-31 06:02] LABS: Magnesium 1.9 mg/dL (1.8-2.4); Potassium 3.6 mmol/L (3.5-5.1)
[2022-08-31] MEDS: ASPIRIN 325 MG TAB PO SCH (08:34)
[2022-08-31] MEDS: THIAMINE HCL 100 MG TABLET PO SCH (08:34)
[2022-08-31] MEDS: METOPROLOL TAR 50 MG TAB PO SCH ×2 (08:34→21:17)
[2022-08-31] MEDS: FUROSEMIDE 40 MG/4 ML VIAL IV SCH ×2 (08:35→16:32)
[2022-08-31] MEDS: FOLIC ACID 1 MG TABLET PO SCH (08:35)
[2022-08-31] MEDS: APIXABAN 5 MG TABLET PO SCH ×2 (08:35→21:17)
[2022-08-31] MEDS ORDERED: POTASSIUM CL SA 10 MEQ TAB PO ONE (09:00)
--- NOTE | 2022-08-31 13:33 | P.PN ---
Subjective Date of Service: 08/31/22 Chief Complaint: Generalizesd swelling, SOB No acute events overnight. He reports that his shortness of breath is improving significantly, but he continues to have significant lower extremity edema. His net I/O -4.4 L since admission. He denies chest pain or palpitations. Review of Systems 10-point ROS is otherwise unremarkable Cardiovascular: Edema Physical Examination - Vital Signs Temperature: 97.2 F Blood Pressure: 108/55 Pulse: 77 Respirations: 18 Pulse Ox (%): 98 Assessment And Plan - Plan - Physical Exam General: Alert, In no apparent distress, Oriented x3 HEENT: Atraumatic, PERRLA, Mucous membr. moist/pink, EOMI, Sclerae nonicteric Neck: JVD not distended (difficult to assess due to habitus) Respiratory: Diminished, Crackles/rales (minimal bibasilar) Cardiovascular: Normal pulses, Regular rate/rhythm, Normal S1 S2, No gallops, No rubs, No murmurs, Edema (3-4+ pitting BLE) Gastrointestinal: Normal bowel sounds, Soft and benign, Non-distended, No tenderness, No rebound, No guarding Musculoskeletal: No clubbing Integumentary: No rashes Neurological: Normal speech, Cranial nerves 3-12 intact, Normal affect # Acute on Chronic Decompensated Congestive Heart Failure (Unknown Ejection Fraction) - Consult Cardiology and spoke with Dr. Elmore - recommendations appreciated - Transthoracic echocardiogram = pending - Diuresis with IV furosemide for today - Daily weights - Strict I/O - Cardiac diet, 1.5 L fluid restriction, 2 g Na restriction # Type II Non-ST Segment Elevation Myocardial Infarction (Demand Ischemia) secondary to above # Hypertension - Cardiology consulted - recommendations appreciated - Troponin trend: 130.9 -> 134.4 -> 119.1 - Continue aspirin # Alcohol Use Disorder - Last alcoholic beverage was ~7 days ago - low likelihood for alcohol withdrawal syndrome - Offered chlordiazepoxide, but he declined - Ordered thiamine, folic acid # Chronic Atrial Fibrillation - Continue home metoprolol, apixaban # Tobacco Use Disorder - Tobacco cessation counseling provided - Nicotine patch available # Morbid Obesity - BMI 61.2 kg/m2 - Lifestyle modifications Santiago Dennis M.D.
[2022-09-01] MEDS: FUROSEMIDE 40 MG/4 ML VIAL IV SCH ×3 (01:00→16:12)
--- NOTE | 2022-09-01 04:14 | PN ---
Date of Progress Note: 08/31/2022 Subjective: Seen by bedside. Continues to have significant swelling and shortness of breath and ort hopnea. Review of Systems: Positive shortness of breath, orthopnea, significant lower extremity edema. No chest pain. No nause a, vomiting, or diarrhea. No abdominal pain. No dysuria, polyuria, or urgency. No skin rash. All other systems reviewed are negative. Physical Examination: Vital Signs: Reviewed. Head and Neck: Pupils are equal, reactive to light. Intact eye movements. No JVD. No cervical lym phadenopathy. Neck is supple. Thyroid is not enlarged. Lungs: Decreased breathing sounds with wheezing and no accessory muscle use or muscle retraction. Heart: Regular rate and rhythm with S3. Abdomen: Soft, nontender. Bowel sounds positive. No organomegaly. No masses or hernia. No rigidi ty or rebound. Extremities: 3 to 4+ edema unchanged. Neurologic: Alert, awake. No acute focal deficits appreciated. Lymph Nodes: No cervical or axillary lymphadenopathy. Investigations: BUN is 11, creatinine 1.1, and hemoglobin is 10.1. Assessment And Recommendations: 1.Acute on chronic diastolic heart failure exacerbation. Increase the Lasix frequency to q.8 hours and add metolazone 2.5 mg daily. The patient needs aggressive diuresis. These filling pressures are extremely high on echo and his RA pressure is likely more than 25 mmHg. Aggressive diuresis is myra mmended and strict low-salt diet and fluid restriction. 2.Elevated troponin. This is demand ischemia as the patient does not have any chest pain. However, we will plan for stress test to be done as an outpatient. 3.Anemia. This is chronic and stable. SR/MODL Voice ID: [id number] Report ID: [id number]
[2022-09-01 04:58] LABS: Potassium 3.7 mmol/L (3.5-5.1)
[2022-09-01] MEDS ORDERED: POTASSIUM CL SA 10 MEQ TAB PO ONE (09:00)
[2022-09-01] MEDS: ASPIRIN 325 MG TAB PO SCH (09:16)
[2022-09-01] MEDS: APIXABAN 5 MG TABLET PO SCH ×2 (09:17→20:30)
[2022-09-01] MEDS: THIAMINE HCL 100 MG TABLET PO SCH (09:17)
[2022-09-01] MEDS: METOPROLOL TAR 50 MG TAB PO SCH ×2 (09:17→20:30)
[2022-09-01] MEDS: METOLAZONE 5 MG TABLET PO SCH (09:17)
[2022-09-01] MEDS: FOLIC ACID 1 MG TABLET PO SCH (09:18)
--- NOTE | 2022-09-01 09:24 | P.PN ---
Subjective Date of Service: 09/01/22 Chief Complaint: Generalizesd swelling, SOB No acute events overnight. He reports that his shortness of breath is nearly non-existent at rest; however, he experiences significant shortness of breath with minimal ambulation. His net I/O -4.9 L since admission. He denies chest pain or palpitations. Review of Systems 10-point ROS is otherwise unremarkable Respiratory: Shortness of Breath Cardiovascular: Orthopnea Physical Examination - Vital Signs Temperature: 97.9 F Blood Pressure: 116/55 Pulse: 73 Respirations: 18 Pulse Ox (%): 96 Assessment And Plan - Plan - Physical Exam General: Alert, In no apparent distress, Oriented x3 HEENT: Atraumatic, PERRLA, Mucous membr. moist/pink, EOMI, Sclerae nonicteric Neck: JVD not distended (difficult to assess due to habitus) Respiratory: Diminished, Crackles/rales (minimal bibasilar) Cardiovascular: Normal pulses, Regular rate/rhythm, Normal S1 S2, No gallops, No rubs, No murmurs, Edema (3-4+ pitting BLE) Gastrointestinal: Normal bowel sounds, Soft and benign, Non-distended, No tenderness, No rebound, No guarding Musculoskeletal: No clubbing Integumentary: No rashes Neurological: Normal speech, Cranial nerves 3-12 intact, Normal affect # Acute on Chronic Decompensated Congestive Heart Failure (Unknown Ejection Fraction) - Consult Cardiology and spoke with Dr. Elmore - recommendations appreciated - Urine output appears to be slowing down - Recommended increasing furosemide from q12hr to q8hr and adding metolazone 5 mg daily - Transthoracic echocardiogram = pending - Diuresis with IV furosemide for today - Daily weights - Strict I/O - Cardiac diet, 1.5 L fluid restriction, 2 g Na restriction # Type II Non-ST Segment Elevation Myocardial Infarction (Demand Ischemia) se condary to above # Hypertension - Cardiology consulted - recommendations appreciated - Troponin trend: 130.9 -> 134.4 -> 119.1 - Continue aspirin # Alcohol Use Disorder - Last alcoholic beverage was ~7 days ago - low likelihood for alcohol withdrawal syndrome - Offered chlordiazepoxide, but he declined - Ordered thiamine, folic acid # Chronic Atrial Fibrillation - Continue home metoprolol, apixaban # Tobacco Use Disorder - Tobacco cessation counseling provided - Nicotine patch available # Morbid Obesity - BMI 61.2 kg/m2 - Lifestyle modifications Santiago Dennis M.D.
[2022-09-01] MEDS: HYDROCODONE/APAP 5/325 MG TAB PO PRN (16:11)
--- NOTE | 2022-09-01 18:53 | PN ---
Date of Progress Note: 09/01/2022 Subjective: Seen by bedside, improving slowly. Review of Systems: No chest pain. Has orthopnea and shortness of breath, not exertional. Lower extremity edema. No na usea, vomiting, or diarrhea. All other systems were reviewed and they were negative. Physical Examination: Vital Signs: Reviewed. Head and Neck: Pupils are equal, reactive to light. No cervical lymphadenopathy. Neck is supple. Thyroid is not enlarged. Lungs: Clear to auscultation bilaterally. No rhonchi, wheezing, or crackles. No accessory muscle u se. Heart: Regular rate and rhythm. No extra sounds. Abdomen: Soft, nontender. Bowel sounds positive. No organomegaly. No masses or hernia. No rigidi ty or rebound. Extremities: 3 to 4+ edema. Neurologic: Alert, awake, oriented x3. No acute focal deficits appreciated. Lymph Nodes: No cervical or axillary lymphadenopathy. Investigations: BUN is 12, creatinine 1.15, hemoglobin is 10.1. Assessment And Recommendations: 1.Acute on chronic severe systolic heart failure. Continue with Lasix 40 q.8 hours and Zaroxolyn ev eryday. Carefully monitor in and output, and BUN, creatinine, and electrolytes. 2.Hypertension. Blood pressure is actually on the low side now. Continue to monitor. 3.Elevated troponin. This is due to demand. We will monitor. SR/MODL Voice ID: [id number] Report ID: [id number]
[2022-09-02] MEDS: FUROSEMIDE 40 MG/4 ML VIAL IV SCH ×3 (01:21→16:19)
[2022-09-02 05:57] LABS: Potassium 2.9 mmol/L (3.5-5.1)
[2022-09-02] MEDS ORDERED: KCL 20 MEQ/100 mL IVPB 20 MEQ/100 ML BAG IV SCH (06:09)
[2022-09-02] MEDS ORDERED: NA CHLORIDE 0.9% 500 ML ONE (06:25)
[2022-09-02] MEDS ORDERED: POTASSIUM CL 40 MEQ in NA CHLORIDE 0.9% 500 ML IV SCH (08:00)
[2022-09-02] MEDS: APIXABAN 5 MG TABLET PO SCH ×2 (08:58→20:59)
[2022-09-02] MEDS: FOLIC ACID 1 MG TABLET PO SCH (08:58)
[2022-09-02] MEDS: METOPROLOL TAR 50 MG TAB PO SCH ×2 (08:59→21:00)
[2022-09-02] MEDS: THIAMINE HCL 100 MG TABLET PO SCH (08:59)
[2022-09-02] MEDS: METOLAZONE 5 MG TABLET PO SCH (08:59)
[2022-09-02] MEDS: ASPIRIN 325 MG TAB PO SCH (08:59)
--- NOTE | 2022-09-02 19:53 | P.PN ---
Subjective Date of Service: 09/02/22 Chief Complaint: Generalizesd swelling, SOB No acute events overnight. He reports that persistent shortness of breath with minimal ambulation. He states that he has had good urine output with his current diuretic regimen. His net I/O -11 L since admission. He denies chest pain or palpitations. Review of Systems 10-point ROS is otherwise unremarkable Respiratory: SOB with Excertion Physical Examination - Vital Signs Temperature: 97.7 F Blood Pressure: 113/67 Pulse: 66 Respirations: 16 Pulse Ox (%): 98 Assessment And Plan - Plan - Physical Exam General: Alert, In no apparent distress, Oriented x3 HEENT: Atraumatic, PERRLA, Mucous membr. moist/pink, EOMI, Sclerae nonicteric Neck: JVD not distended (difficult to assess due to habitus) Respiratory: Diminished, Crackles/rales (minimal bibasilar) Cardiovascular: Normal pulses, Regular rate/rhythm, Normal S1 S2, No gallops, No rubs, No murmurs, Edema (2-3+ pitting BLE) Gastrointestinal: Normal bowel sounds, Soft and benign, Non-distended, No tenderness, No rebound, No guarding Musculoskeletal: No clubbing Integumentary: No rashes Neurological: Normal speech, Cranial nerves 3-12 intact, Normal affect # Acute on Chronic Decompensated Congestive Heart Failure (Unknown Ejection Fraction) - Consult Cardiology and spoke with Dr. Elmore - recommendations appreciated - Recommended increasing furosemide from q12hr to q8hr and adding metolazone 5 mg daily - Transthoracic echocardiogram = pending - Diuresis with IV furosemide for today - Daily weights - Strict I/O - Cardiac diet, 1.5 L fluid restriction, 2 g Na restriction # Type II Non-ST Segment Elevation Myocardial Infarction (Demand Ischemia) secondary to above # Hypertension - Cardiology consulted - recommendations appreciated - Troponin trend: 130.9 -> 134.4 -> 119.1 - Continue aspirin # Alcohol Use Disorder - Last alcoholic beverage was ~8 days ago - low likelihood for alcohol withdrawal syndrome - Offered chlordiazepoxide, but he declined - Ordered thiamine, folic acid # Chronic Atrial Fibrillation - Continue home metoprolol, apixaban # Tobacco Use Disorder - Tobacco cessation counseling provided - Nicotine patch available # Morbid Obesity - BMI 61.2 kg/m2 - Lifestyle modifications Santiago Dennis M.D.
[2022-09-02] MEDS: HYDROCODONE/APAP 5/325 MG TAB PO PRN (22:13)
[2022-09-03] MEDS: ALBUMIN HUMAN 25% 50 ML IV SCH ×2 (00:59→01:35)
[2022-09-03] MEDS: FUROSEMIDE 40 MG/4 ML VIAL IV SCH ×2 (02:27→09:00)
[2022-09-03 04:07] LABS: Magnesium 1.9 mg/dL (1.8-2.4)
[2022-09-03] MEDS ORDERED: POTASSIUM CL SA 10 MEQ TAB PO ONE (05:34)
--- NOTE | 2022-09-03 07:36 | ECHO ---
HEIGHT: 5 ft 10 in WEIGHT: 409 lb 14.4 oz DATE OF STUDY: 08/31/[address]: Santiago Dennis MD 2-DIMENSIONAL: YES M.MODE: YES DOPPLER: YES COLOR FLOW: YES TDS: YES PORTABLE: YES DEFINITY: BUBBLE STUDY: DIAGNOSIS: CONGESTIVE HEART FAILURE CARDIAC HISTORY: CATHERIZATION: SURGERY: PROSTHETIC VALVE: PACEMAKER: MEASUREMENTS (cm) DIASTOLIC (NORMALS) SYSTOLIC (NORMALS) IVSd 1.4 (0.6-1.2) LA Diam 4.3 (1.9-4.0) LVEF 62% LVIDd 5.2 (3.5-5.7) LVIDs 3.5 (2.0-3.5) %FS 33% LVPWd 1.6 (0.6-1.2) Ao Diam 3.1 (2.0-3.7) 2 DIMENSIONAL ASSESSMENT: RIGHT ATRIUM: NORMAL LEFT ATRIUM: ENLARGED RIGHT VENTRICLE: NORMAL LEFT VENTRICLE: LEFT VENTRICULAR HYPERTROPHY TRICUSPID VALVE: MILD TRICUSPID REGURGITATION MITRAL VALVE: NORMAL PULMONIC VALVE: NORMAL AORTIC VALVE: NORMAL PERICARDIAL EFFUSION: NONE AORTIC ROOT: NORMAL LEFT VENTRICULAR WALL MOTION: UNABLE TO EVALUATE DUE TO POOR WINDOWS. DOPPLER/COLOR FLOW: MILD TRICUSPID REGURGITATION. COMMENTS: POOR WINDOWS. LEFT VENTRICULAR EJECTION FRACTION APPEARS OVERALL NORMAL. MODERATE CONCENTRIC LEFT VENTRICULAR HYPERTROPHY WITH DIASTOLIC DYSFUNCTION. SEVERE PULMONARY HYPERTENSION WITH RIGHT VENTRICULAR SYSTOLIC PRESSURE OF GREATER THAN 60 mmHg. TECHNOLOGIST: LIZ WILLIAMSON
[2022-09-03] MEDS: METOLAZONE 5 MG TABLET PO SCH (08:40)
[2022-09-03] MEDS: APIXABAN 5 MG TABLET PO SCH ×2 (08:40→21:42)
[2022-09-03] MEDS: THIAMINE HCL 100 MG TABLET PO SCH (08:40)
[2022-09-03] MEDS: FOLIC ACID 1 MG TABLET PO SCH (08:40)
[2022-09-03] MEDS: ASPIRIN 325 MG TAB PO SCH (08:41)
[2022-09-03] MEDS: METOPROLOL TAR 50 MG TAB PO SCH (09:00)
[2022-09-03] MEDS ORDERED: ALBUMIN HUMAN 25% 12.5 GM, FUROSEMIDE 100 MG in NA CHLORIDE 0.9% 40 ML IV SCH (11:00)
[2022-09-03 14:02] VITALS: BMI 58.7
--- NOTE | 2022-09-03 15:43 | P.PN ---
Subjective Date of Service: 09/03/22 Subjective: No new changes, No C/O voiced, Improving Review of Systems 10-point ROS is otherwise unremarkable Physical Examination - Vital Signs Temperature: 97.7 F Blood Pressure: 108/55 Pulse: 70 Respirations: 19 Pulse Ox (%): 98 - Physical Exam General: Alert, In no apparent distress, Oriented x3 HEENT: Atraumatic, PERRLA, EOMI Neck: Supple, JVD not distended Respiratory: Clear to auscultation bilaterally, Normal air movement Cardiovascular: Regular rate/rhythm, Normal S1 S2 Gastrointestinal: Normal bowel sounds, Soft and benign, Non-distended, No tenderness Musculoskeletal: No tenderness, Swelling Integumentary: Tenderness/swelling Neurological: Sensation intact, Cranial nerves 3-12 intact - Studies Medications List Reviewed: Yes Assessment & Plan - Problems (Diagnosis) (1) Acute diastolic heart failure Current Visit: Yes Status: Acute (2) Alcohol abuse Current Visit: Yes Status: Acute (3) Cirrhosis Current Visit: Yes Status: Acute - Plan PLAN: 1. Outpatient follow-up with gastroenterology 2. Refrain from alcohol abuse 3. Albumin and Lasix drip 4. Cardiology consultation appreciated 5. Aggressive diuresis 6. Strict I's and O's 7. Repeat CXR 8. Daily weights; 9. Anticipate discharge home over the next 48 hours Discharge Plan: Home Plan to discharge in: Greater than 2 days - Advance Directives Does patient have a Living Will: No Does patient have a Durable POA for Healthcare: No - Code Status/Comfort Care Code Status Assessed: Yes Code Status: Full Code Physician Review: Patient Assessed, Agree with Above Assessment and Plan Critical Care: No Time Spent Managing PTS Care (In Minutes): 35
--- NOTE | 2022-09-03 21:17 | PN ---
Date of Progress Note: 09/03/2022 Subjective: Seen at bedside. Still has significant lower extremity edema, but breathing has improve d significantly. Review of Systems: No chest pain, shortness of breath, or orthopnea. No nausea, vomiting, or diarrhea. No abdominal pa in. Has lower extremity edema. No dysuria, polyuria, or urinary urgency. All other systems are rev iewed and are negative. Physical Examination: Vital Signs: Reviewed. Head And Neck: Pupils are equal and reactive to light. Intact eye movements. No cervical lymphaden opathy. Neck is supple. Thyroid is not enlarged. Lungs: Clear to auscultation bilaterally. No rhonchi, wheezing, or crackles. No accessory muscle u se. Heart: Regular rate and rhythm. No extra sounds. Abdomen: Soft, nontender. Bowel sounds positive. No organomegaly. No masses or hernia. No rigidi ty or rebound. Extremities: 3+ pitting edema bilaterally. No clubbing or cyanosis. Intact pulses. Skin: No rash. Neuro: Alert, awake, and oriented x3. No acute focal deficits appreciated. Investigations: BUN 20, creatinine 1.34. Assessment And Recommendation: 1.[id number] congestive heart failure exacerbation. Diuresed very well, however, still has si gnificant edema. I will stop all diuretics today because of the rise in creatinine and reassess nandini rrow. 2.Acute renal failure due to active diuresis. We will hold Lasix and Zaroxolyn today and reassess t omorrow morning. SR/MODL Voice ID: [id number] Report ID: [id number]
[2022-09-03] MEDS: METOPROLOL TAR 25 MG TAB PO SCH (21:42)
[2022-09-04 05:55] LABS: Absolute Lymphocytes (CBC) 1.4 K/uL (0.7-4.9); Hematocrit 32.9 % (39.6-49.0); Lymphocytes % 23.8 % (15.3-44.8); MCV 88.3 fL (80-100); MPV 7.2 fL (7.6-11.3); RBC Red Blood Cell Count 3.73 M/uL (4.33-5.43)
[2022-09-04 06:15] LABS: Albumin 3.2 g/dL (3.4-5.0); Bilirubin Total 1.5 mg/dL (0.2-1.0); Magnesium 1.9 mg/dL (1.8-2.4); Protein, Total 8.8 g/dL (6.4-8.2)
[2022-09-04 06:18] LABS: Potassium 2.9 mmol/L (3.5-5.1); Thyroid Stimulating Hormone 4.86 uIU/mL (0.360-3.740)
--- NOTE | 2022-09-04 06:57 | RAD REPORT ---
EXAM DESCRIPTION: RAD - Chest Single View - 09/04/2022 5:24 am CLINICAL HISTORY: pneumonia COMPARISON: Portable 08/31/2022 TECHNIQUE: AP portable chest image was obtained 09/04/2022 5:24 am . FINDINGS: No new mass consolidation. Interstitial markings remain diffusely prominent. Prominent car diomegaly with central vascular engorgement still present. No measurable pleural effusion and no pneu mothorax. No acute bony abnormality seen. No acute aortic findings suspected. IMPRESSION: CHF/volume overload pattern similar to August 29.
[2022-09-04] MEDS: KCL 20 MEQ/100 mL IVPB 20 MEQ/100 ML BAG IV SCH ×3 (09:00→11:00)
[2022-09-04] MEDS: METOPROLOL TAR 25 MG TAB PO SCH (09:00)
[2022-09-04] MEDS: ASPIRIN 325 MG TAB PO SCH (10:25)
[2022-09-04] MEDS: THIAMINE HCL 100 MG TABLET PO SCH (10:25)
[2022-09-04] MEDS: FOLIC ACID 1 MG TABLET PO SCH (10:25)
[2022-09-04] MEDS: APIXABAN 5 MG TABLET PO SCH ×2 (10:26→20:49)
[2022-09-04] MEDS ORDERED: NA CHLORIDE 0.9% 500 ML IV SCH (11:00)
[2022-09-04] MEDS: ALBUMIN HUMAN 25% 12.5 GM, FUROSEMIDE 100 MG in NA CHLORIDE 0.9% 40 ML IV SCH ×2 (11:48→16:00)
[2022-09-04] MEDS ORDERED: POTASSIUM 25 MEQ EFFERV TAB PO ONE ×2 (12:26→19:00)
[2022-09-05] MEDS ORDERED: ALBUMIN HUMAN 25% 12.5 GM, FUROSEMIDE 100 MG in NA CHLORIDE 0.9% 40 ML IV SCH (05:00)
[2022-09-05 05:07] VITALS: O2SAT 98
[2022-09-05 06:14] LABS: Absolute Lymphocytes (CBC) 1.5 K/uL (0.7-4.9); Hematocrit 32.5 % (39.6-49.0); Lymphocytes % 26.8 % (15.3-44.8); MCV 88.1 fL (80-100); MPV 7.3 fL (7.6-11.3); RBC Red Blood Cell Count 3.69 M/uL (4.33-5.43)
[2022-09-05 06:32] LABS: Magnesium 2.1 mg/dL (1.8-2.4)
[2022-09-05 06:35] LABS: Potassium 2.7 mmol/L (3.5-5.1)
[2022-09-05] MEDS ORDERED: POTASSIUM CL 40 MEQ in NA CHLORIDE 0.9% 500 ML IV SCH (08:00)
[2022-09-05] MEDS: FOLIC ACID 1 MG TABLET PO SCH (08:28)
[2022-09-05] MEDS: APIXABAN 5 MG TABLET PO SCH (08:28)
[2022-09-05] MEDS: ASPIRIN 325 MG TAB PO SCH (08:30)
[2022-09-05] MEDS: THIAMINE HCL 100 MG TABLET PO SCH (08:30)
[2022-09-05] MEDS ORDERED: KCL 20 MEQ/100 mL IVPB 20 MEQ/100 ML BAG IV SCH ×2 (09:00→11:00)
[2022-09-05] MEDS ORDERED: POTASSIUM 25 MEQ EFFERV TAB PO ONE (10:47)
[2022-09-05 10:51] VITALS: BP 108/55; TEMP 97.7
--- NOTE | 2022-09-05 10:51 | P.PN ---
Date of Service: 09/05/22 Subjective Patient clinical symptoms are improving Review of Systems 10-point ROS is otherwise unremarkable Physical Examination - Vital Signs Reviewed - Physical Exam General: Alert, In no apparent distress, Oriented x3 Respiratory: Clear to auscultation bilaterally, Normal air movement Cardiovascular: Regular rate/rhythm, Normal S1 S2 Gastrointestinal: Normal bowel sounds, Soft and benign, Non-distended, No tenderness Integumentary: Tenderness/swelling Neurological: Sensation intact, Cranial nerves 3-12 intact - Studies Medications List Reviewed: Yes Assessment & Plan - Problems (Diagnosis) (1) Acute diastolic heart failure Current Visit: Yes Status: Acute (2) Alcohol abuse Current Visit: Yes Status: Acute (3) Cirrhosis Current Visit: Yes Status: Acute - Plan Continue with plan of care as mentioned below: 1. Outpatient follow-up with gastroenterology 2. Refrain from alcohol abuse 3. Albumin and Lasix drip 4. Cardiology consultation appreciated 5. Aggressive diuresis 6. Strict I's and O's 7. Repeat CXR 8. Daily weights; 9. Anticipate discharge home over the next 48 hours
[2022-09-05] MEDS ORDERED: METOPROLOL TAR 25 MG TAB PO SCH (21:00)
== END 2022-09-05 12:30 | disposition home or self-care (01) | DRG 280 ==
LOC: ER 14:42 → ERHOLD 18:03 → 4TH 20:17
PROVIDERS: ADMIT Internal Medicine; ATTEND Hospitalist
DX: I11.0 Hypertensive heart disease with heart failure (principal); I50.23 Acute on chronic systolic (congestive) heart failure; I21.A1 Myocardial infarction type 2; I48.20 Chronic atrial fibrillation, unspecified; Z68.44 Body mass index [BMI] 60.0-69.9, adult; N17.9 Acute kidney failure, unspecified; E66.01 Morbid (severe) obesity due to excess calories; D64.9 Anemia, unspecified; K74.60 Unspecified cirrhosis of liver; F10.10 Alcohol abuse, uncomplicated; F17.210 Nicotine dependence, cigarettes, uncomplicated; R79.89 Other specified abnormal findings of blood chemistry; Z86.16 Personal history of COVID-19; Z79.01 Long term (current) use of anticoagulants; Z79.899 Other long term (current) drug therapy; Z28.310 Unvaccinated for COVID-19; Z20.822 Contact with and (suspected) exposure to COVID-19
CPT/HCPCS: 36415; 71045; 80048; 80053; 80061; 81003; 83735; 83880; 84100; 84132; 84439; 84443; 84484; 85025; 85610; 87811; 93005; 93306; 96374; 99285; J1650; J1940; J3480; J7040; P9047

== ENCOUNTER 2022-12-07 16:53 | Inpatient (IN) | payer BC ==
--- OUTSIDE RECORDS SUMMARY | 2022-12-07 16:56 | XMS REPORT | Continuity of Care Document ---
:1970 Author Organization [facility] t Address [address] [place] [address] Care Team Providers Name Role Phone JEFFRY RUBIO Attending Clinician Unavailable Zdane_F Attending Clinician Unavailable Analy Attending Clinician Unavailable Zdane_Kelvin Admitting Clinician Unavailable Analy Admitting Clinician Unavailable Payers Payer Name Policy Type Policy Number Effective Date Expiration Date S ource BCBS 2 [id number] 2022 00:00:00 [place] [id number] [place] Problems Condition Condition Condition Status Onset Resolution Last Treating Co mments Source Name Details Category Date Date Treatment Clinician Date Chronic Chronic Disease Active 2021-11 Audra anticoagul anticoagul 1-07 Se ybold ation ation 00:00: - 00 Externa l Class 3 Class 3 Disease Active 2021-11 Audra severe severe 1-07 Seybold obesity obesity 00:00: - due to due to 00 Externa excess excess l calories calories with with serious serious comorbidit comorbidit y and body y and body mass index mass index (BMI) of (BMI) of 50.0 to 50.0 to 59.9 in 59.9 in adult adult Diastolic Diastolic Disease Active 2021-11 Cyril cook CHF with CHF with 1-07 Seybol d preserved preserved 00:00: - left left 00 Externa ventricula ventricula l r r function, function, NYHA class NYHA class 2 2 History of History of Disease Active 2021-11 Kylee elsey alcohol alcohol -07 Seybold abuse abuse 00:00: - 00 Externa l Hypercoagu Hypercoagu Disease Active 2021-11 Kylee rojas lable lable 1-07 Seybold state due state due 00:00: - to atrial to atrial 00 Exte rna fibrillati fibrillati l on on RACHEL RACHEL Disease Active 2021-11 Audra (obstructi (obstructi 11-10 Se ybold ve sleep ve sleep 00:00: - apnea) apnea) 00 Externa l Persistent Persistent Disease Active 2021-11 Kylee rojas atrial atrial 1-07 Seybold fibrillati fibrillati 00:00: - on on 00 Externa l Primary Primary Disease Active 2021-11 Audra hypertensi hypertensi 1-07 Se ybold on on 00:00: - 00 Externa l Chronic Chronic Disease Active 2021-11 Adura bilateral bilateral 11-10 Seyb old low back low back 00:00: - pain pain 00 Externa without without l sciatica sciatica Other Other Disease Active 2021-11 Audra fatigue fatigue 07 Seybold 00:00: - 00 Externa l Elevated Elevated Disease Active 2021-11 Kelse y liver liver 11-10 Seybold function function 00:00: - tests tests 00 Externa l Allergies, Adverse Reactions, Alerts This patient has no known allergies or adverse reactions. 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 History MARTHAOH Audra Coates ld - Alcohol Binge External Alcohol Comment 2022-09-10 2022-09-10 Sober for 2 Audra gutierrez - 00:00:00 00:00:00 weeks(August External 2021) Education 2022-09-10 2022-09-10 15 Audra Galindo - 00:00:00 00:00:00 External Tobacco use and 2022-09-10 2022-09-10 Smokeless tobacco Leo mott Seybmarcelo - exposure 00:00:00 00:00:00 non-user External Alcohol intake 2022-09-10 2022-09-10 Ex-drinker Audra ferguson - 00:00:00 00:00:00 (finding) External Sex Ass[birth year] At [birth year] Audra Ba ybold - 00:00:00 00:00:00 External Smoking Status Start Date Stop Date Source Never smoked tobacco Audra Seyb old - External Medications Ordered Filled Start Stop Current Ordering Indication Dosage Frequency Signature Comments Components Source Medication Medication Date Date Medication? Clinician (SIG) Name Name Furosemide 2021-11 No 40mg Take 40 mg Audra 40 MG oral 11-10 by mouth 2 Se ybold Tablet 15:01: 00:00 times - 38 :00 daily Externa l metOLazone 2021-11 No 5mg Take 5 mg K elsey 5 MG oral 11-10 by mouth Seybo ld Tablet 15:00: 00:00 daily - 46 :00 Externa l Potassium 2021-11 No Take by Christine valadez Bicarb-Citr 11-10 mouth Seybol d ic Acid 20 15:00: 00:00 - MEQ oral 17 :00 Externa Effer Tab l Potassium 2021-11 Yes 20meq Take 20 Christine ey Chloride 20 11-10 mEq by Seybol d MEQ oral 15:00: mouth 2 - Pack 08 times Externa daily l Metoprolol 2021-11 Yes 25mg Take 25 mg K elsey Tartrate 25 11-10 by mouth 2 Se ybold MG oral 14:58: times - Tablet 41 daily Externa l Metoprolol- 2021-11 No Take by Leo mott Hydrochloro 11-10 mouth Seybol d thiazide 14:57: 00:00 - 100-12.5 MG 59 :00 Externa oral TABLET l SR 24 HR Meloxicam 2021-11 No 15mg Take 15 mg K elsey 15 MG oral 11-10 by mouth Seyb old Tablet 14:56: 00:00 daily - 46 :00 Externa l Apixaban 2021-11 Yes 5mg Take 5 mg Christine ey (Eliquis) 5 11-10 by mouth 2 Se ybold MG oral 14:31: times - Tablet 16 daily Externa l metOLazone 2021-11 Yes [id number] Every K elsey 5 MG oral 11-10, Seybold Tablet 00:00: Saturday - and Saturday Externa l Furosemide 2021-11 Yes [id number] 40mg Take 1 Audra 40 MG oral 1-07 tablet (40 Sey bold Tablet 00:00: mg total) - 00 by mouth 2 Externa times l daily Vital Signs Vital Name Observation Time Observation Value Comments Source Systolic blood 2022-09-10 20:27:00 113 mm[Hg] Audra Baybold - pressure External Diastolic blood 2022-09-10 20:27:00 68 mm[Hg] Delano y Seybold - pressure External Heart rate 2022-09-10 20:27:00 84 /min Audra valadezbold - External Body temperature 2022-09-10 20:27:00 36.89 Janine Christine valadez Seybold - External Respiratory rate 2022-09-10 20:27:00 17 /min Christine valadez Seybold - External Body height 2022-09-10 20:27:00 177.8 cm Audra valadezbolatasha - External Body weight 2022-09-10 20:27:00 174.635 kg Audra valadezbolatasha - External BMI 2022-09-10 20:27:00 55.24 kg/m2 Audra gutierrez - External Oxygen saturation in 2022-09-10 20:27:00 98 /min Audra Baadelitamarcelo - Arterial blood by External Pulse oximetry Procedures This patient has no known procedures. Encounters Start End Encounter Admission Attending Care Care Encounter Source Date/Time Date/Time Type Type Clinicians Facility Department ID 2022-10-08 2022-10-08 Outpatient AUDRA RUBIO [id number] Audra 08:15:00 08:15:00 JEFFRY Tejedaol d 2022-09-10 2022-09-10 Outpatient AUDRA RUBIO [id number] Audra 14:00:00 14:00:00 JEFFRY Seybol d 2021-10-20 2021-10-20 Outpatient [facility]un[facility] [id number] [place] 12:57:00 12:57:00 [id number] 2020-09-21 2020-09-21 Outpatient Brown_R [facility] [id number] [place] 02:49:00 02:49:00 [id number] Results This patient has no known results.
[2022-12-07 19:25] LABS: Urine Blood Negative (Negative); Urine Glucose Negative (Negative); Urine Protein Negative (Negative); Urine Specific Gravity 1.015 (1.005-1.030)
[2022-12-07 19:32] LABS: Absolute Lymphocytes (CBC) 1.6 K/uL (0.7-4.9); Hematocrit 35.8 % (39.6-49.0); Lymphocytes % 25.3 % (15.3-44.8); MCV 91.1 fL (80-100); MPV 6.4 fL (7.6-11.3); RBC Red Blood Cell Count 3.93 M/uL (4.33-5.43)
--- NOTE | 2022-12-07 20:01 | RAD REPORT ---
EXAM DESCRIPTION: Sonal Single View12/07/2022 7:52 pm CLINICAL HISTORY: Shortness of breath COMPARISON: 2021 FINDINGS: Upper lobe vessels are prominent indicative of pulmonary venous hypertension. Lungs appear clear. The heart is moderately enlarged
[2022-12-07 20:27] LABS: Magnesium 1.6 mg/dL (1.6-2.4); Potassium 3.5 mmol/L (3.5-5.1)
[2022-12-07 20:36] LABS: SARS-CoV-2 Antigen Rapid Res Negative (Negative)
--- NOTE | 2022-12-07 20:48 | ER ---
Nurse's Notes [facility] Name: Salvador Catherine Jr Age: 52 yrs Sex: Male : 1970 Arrival Date: 12/07/2022 Time: 16:54 Bed 4 Private MD: Montez Elmore Diagnosis: Hypo-osmolality and hyponatremia;Unspecified atrial fibrillation Presentation: 12/07 17:40 Chief complaint: Patient states: Dr Redd told me to come over here and call him for ko1 orders. Coronavirus screen: At this time, the client does not indicate any symptoms associated with coronavirus-19. Ebola Screen: No symptoms or risks identified at this time. Initial Sepsis Screen: Does the patient meet any 2 criteria? No. Patient's initial sepsis screen is negative. Does the patient have a suspected source of infection? No. Patient's initial sepsis screen is negative. Risk Assessment: Do you want to hurt yourself or someone else? Patient reports no desire to harm self or others. Onset of symptoms was December 07, 2022. 17:40 Method Of Arrival: Ambulatory ko1 17:40 Acuity: YULY 2 ko1 Triage Assessment: 17:41 General: Appears in no apparent distress. comfortable, Behavior is calm, cooperative, ko1 appropriate for age. Pain: Denies pain. Historical: - Allergies: 17:41 No Known Allergies; ko1 - Immunization history:: Adult Immunizations up to date. - Social history:: Smoking status: Patient denies any tobacco usage or history of. Screenin:26 Abuse screen: Denies threats or abuse. Denies injuries from another. Nutritional aa9 screening: No deficits noted. Nutritional screening:. Tuberculosis screening: No symptoms or risk factors identified. 22:43 [facility] ED Fall Risk Assessment (Adult) History of falling in the last 3 months, aa9 including since admission No falls in past 3 months (0 pts) Confusion or Disorientation No (0 pts) Intoxicated or Sedated No (0 pts) Impaired Gait No (0 pts) Mobility Assist Device Used No (0 pt) Altered Elimination No (0 pt) Score/Fall Risk Level 0 - 2 = Low Risk Oriented to surroundings, Maintained a safe environment. Assessment: 19:26 General: Appears in no apparent distress. Behavior is calm, cooperative, appropriate aa9 for age. Pain: Denies pain. Neuro: Level of Consciousness is awake, alert, obeys commands, Oriented to person, place, time, situation. Cardiovascular: Patient's skin is warm and dry. Respiratory: Airway is patent Respiratory effort is even, unlabored. GI: No deficits noted. GI: Abdomen is obese. : No deficits noted. 21:03 Reassessment: Patient appears in no apparent distress at this time. Patient and/or aa9 family updated on plan of care and expected duration. Pain level reassessed. Patient is alert, oriented x 3, equal unlabored respirations, skin warm/dry/pink. Patient denies pain at this time. 22:47 Reassessment: Patient appears in no apparent distress at this time. report called to waldo meek rn Patient denies pain at this time. Vital Signs: 17:41 BP 123 / 52; Pulse 75; Resp 20; Temp 98.6; Pulse Ox 98% ; Weight 179.17 kg; Height 5 ko1 ft. 10 in. (177.80 cm); Pain 0/10; 17:41 Body Mass Index 56.68 (179.17 kg, 177.80 cm) ko1 ED Course: 16:54 Patient arrived in ED. as 16:54 Montez Elmore MD is Private Physician. as 17:27 Leon Kate PA is PHCP. cp 17:27 Ruben Infante MD is Attending Physician. cp 17:41 Triage completed. ko1 17:41 Arm band placed on right wrist. ko1 19:15 Missed attempt(s): 20 gauge in right antecubital area. aa9 19:24 Basic Metabolic Panel Sent. aa9 19:24 CBC with Diff Sent. aa9 19:24 Magnesium Sent. aa9 19:24 NT PRO-BNP Sent. aa9 19:26 Patient has correct armband on for positive identification. Bed in low position. Call aa9 light in reach. 19:27 Urine Osmolality Sent. aa9 19:27 Osmolality, Serum Sent. aa9 19:27 Urine Potassium Random Sent. aa9 19:27 Urine Sodium Random Sent. aa9 19:31 Nida Henriquez, RN is Primary Nurse. aa9 19:54 XRAY Chest (1 view) In Process Unspecified. EDMS 19:55 Warm blanket given. aa9 19:58 Inserted saline lock: 22 gauge in left hand, using aseptic technique. oe 20:30 Notified ED physician of a critical lab result(s). chloride 80. aa9 20:45 Santiago Dennis MD is Hospitalizing Provider. cp 22:42 No provider procedures requiring assistance completed. Patient admitted, IV remains in aa9 place. Administered Medications: 21:02 Drug: NS 0.9% 1000 ml Route: IV; Rate: 50 ml/hr; Site: left hand; aa9 Medication: 22:42 VIS not applicable for this client. aa9 Output: 21:02 Urine: 750ml (Voided); Total: 750ml. aa9 Outcome: 20:47 Decision to Hospitalize by Provider. cp 22:42 Admitted to Med/surg accompanied by tech, room 206, with chart. aa9 22:42 Condition: stable 22:42 Instructed on the need for admit. 22:59 Patient left the ED. aa9 Signatures: Dispatcher [employer] EDMS Priti Riggs as Leon Kate PA PA cp To Singleton oe Nida Henriquez, RN RN aa9 Vanesa Caldera, RN RN ko1 Corrections: (The following items were deleted from the chart) 17:42 17:41 Home Meds: spironolactone 25 mg Oral tab 1 tab once daily; ko1 ko1 17:42 17:41 Home Meds: Lasix 40 mg Oral tab 1 tab once daily; ko1 ko1
--- NOTE | 2022-12-07 20:48 | EDPHYS ---
Physician Documentation [facility] Name: Salvador Catherine Jr Age: 52 yrs Sex: Male : 1970 Arrival Date: 12/07/2022 Time: 16:54 Bed 4 Private MD: Montez Elmore ED Physician Ruben Infante HPI: 12/07 18:50 This 52 yrs old Male presents to ER via Ambulatory with complaints of Abnormal Lab cp Results. 18:50 Patient is a 52-year-old male who presents to the emergency department for evaluation cp after being referred by Dr. Elmore. Patient reports he had recent blood drawn that was abnormal and was told to proceed to the emergency room for evaluation. No complaints expressed by patient. Historical: - Allergies: 17:41 No Known Allergies; ko1 - Immunization history:: Adult Immunizations up to date. - Social history:: Smoking status: Patient denies any tobacco usage or history of. ROS: 18:55 Constitutional: Negative for body aches, chills, fever, poor PO intake. cp 18:55 Eyes: Negative for injury, pain, redness, and discharge. cp 18:55 ENT: Negative for ear pain, sore throat, difficulty swallowing, difficulty handling secretions. 18:55 Cardiovascular: Positive for edema, Negative for chest pain, palpitations. 18:55 Respiratory: Negative for cough, shortness of breath, wheezing. 18:55 Abdomen/GI: Negative for abdominal pain, nausea, vomiting, and diarrhea, constipation, black/tarry stool, rectal bleeding. 18:55 Neuro: Negative for altered mental status, dizziness, headache, numbness, syncope, weakness. 18:55 All other systems are negative. Exam: 19:00 Constitutional: The patient appears in no acute distress, alert, awake, cp non-diaphoretic, non-toxic, well developed, well nourished, obese. 19:00 Head/Face: Normocephalic, atraumatic. cp 19:00 Eyes: Periorbital structures: appear normal, Conjunctiva: normal, no exudate, no injection, Sclera: no appreciated abnormality, Lids and lashes: appear normal, bilaterally. 19:00 ENT: External ear(s): are unremarkable, Nose: is normal, Mouth: Lips: moist, Oral mucosa: pink and intact, moist, Posterior pharynx: is normal, airway is patent, no erythema, no exudate. 19:00 Chest/axilla: Inspection: normal. 19:00 Cardiovascular: Rate: normal, Rhythm: irregular, Edema: ankle edema, that is moderate, JVD: is not appreciated. 19:00 Respiratory: the patient does not display signs of respiratory distress, Respirations: normal, no use of accessory muscles, no retractions, labored breathing, is not present, Breath sounds: decreased breath sounds, are not appreciated, stridor, is not appreciated, wheezing: is not appreciated. 19:00 Abdomen/GI: Inspection: obese Palpation: abdomen is soft and non-tender, in all quadrants. 19:00 Back: pain, is absent, ROM is normal. 19:00 Neuro: Orientation: to person, place \T\ time. Mentation: is normal, Motor: moves all fours, strength is normal, Sensation: is normal. 19:37 ECG was reviewed by the Attending Physician. cp Vital Signs: 17:41 BP 123 / 52; Pulse 75; Resp 20; Temp 98.6; Pulse Ox 98% ; Weight 179.17 kg; Height 5 ko1 ft. 10 in. (177.80 cm); Pain 0/10; 17:41 Body Mass Index 56.68 (179.17 kg, 177.80 cm) ko1 MDM: 17:48 Patient medically screened. cp 20:45 Data reviewed: vital signs, nurses notes, lab test result(s), EKG, radiologic studies, cp plain films. 20:46 Consideration of Admission/Observation Patient was admitted/placed on observation. cp Independent interpretation of the following test(s) in the Emergency Department EKG: See my EKG interpretation above X-Ray: My interpretation is chest xray negative for focal pneumonia. Care significantly affected by the following chronic conditions: Congestive Heart Failure. Counseling: I had a detailed discussion with the patient and/or guardian regarding: the historical points, exam findings, and any diagnostic results supporting the discharge/admit diagnosis, lab results, radiology results, the need for further work-up and treatment in the hospital. 12/07 18:48 Order name: Basic Metabolic Panel; Complete Time: 20:37 cp 12/07 20:37 Interpretation: Normal except: NA 124; K 3.5; CL 80; CO2 34; GLUC 119; GFR 82. cp 12/07 18:48 Order name: CBC with Diff; Complete Time: 20:37 cp 02/ 20:38 Interpretation: Normal except: RBC 3.93; HGB 12.3; HCT 35.8; PLT 148; RDW 18.6; MPV cp 6.4; MN% 12.7. 02 18:48 Order name: Magnesium; Complete Time: 20:37 cp 12/07 18:48 Order name: NT PRO-BNP; Complete Time: 20:37 cp 12/07 18:51 Order name: Urine Sodium Random; Complete Time: 20:37 la1 12/07 18:51 Order name: Urine Potassium Random; Complete Time: 20:37 la1 / 18:48 Order name: XRAY Chest (1 view); Complete Time: 20:37 cp / 18:48 Order name: EKG; Complete Time: 18:55 cp / 18:51 Order name: Osmolality, Serum; Complete Time: 20:37 la1 12/07 18:51 Order name: Urine Osmolality; Complete Time: 20:37 la1 12/07 18:53 Order name: UR CL RANDOM; Complete Time: 22:44 EDMS 02/03 19:26 Order name: Urine Dipstick-Ancillary; Complete Time: 19:29 EDMS 02/03 19:32 Order name: SARS RAPID; Complete Time: 20:37 la1 / 18:48 Order name: Cardiac monitoring; Complete Time: 19:24 cp 02/03 18:48 Order name: EKG - Nurse/Tech; Complete Time: 19:33 cp / 18:48 Order name: IV Saline Lock; Complete Time: 19:55 cp 03 18:48 Order name: Labs collected and sent; Complete Time: 19:24 cp / 18:48 Order name: O2 Per Protocol; Complete Time: 19:24 cp / 18:48 Order name: O2 Sat Monitoring; Complete Time: 19:24 cp 02/03 18:52 Order name: Urine Dipstick-Ancillary (obtain specimen); Complete Time: 19:24 la1 EC:37 Rate is 76 beats/min. Rhythm is irregular. QRS interval is prolonged at 116 msec. QT cp interval is prolonged at 470 msec. Interpreted by me. Reviewed by me. Administered Medications: 21:02 Drug: NS 0.9% 1000 ml Route: IV; Rate: 50 ml/hr; Site: left hand; aa9 Disposition: 12/08 07:30 Co-signature as Attending Physician, Ruben Infante MD I reviewed the patient's care rn provided by the Advanced Practice Provider and agree with the diagnosis and treatment plan. Disposition Summary: 12/07/22 20:47 Hospitalization Ordered Hospitalization Status: Inpatient Admission cp Provider: Santiago Dennis cp Location: Telemetry/MedSurg (Inpatient) cp Condition: Stable cp Problem: new cp Symptoms: are unchanged cp Bed/Room Type: Standard cp Room Assignment: 206(12/07/22 21:51) cg Diagnosis - Hypo-osmolality and hyponatremia cp - Unspecified atrial fibrillation cp Forms: - Medication Reconciliation Form cp - SBAR form cp Signatures: Dispatcher [employer] EDRuben Box MD MD rn Attema, Lee, CERTIFIED VETERINARY TECHNICIAN-C CERTIFIED VETERINARY TECHNICIAN-Cla1 Leon Kate PA PA cp Jacklyn Epps RN PIPPA Nida Henriquez RN RN aa9 Vanesa Caldera RN RN ko1 Corrections: (The following items were deleted from the chart) 12/07 17:42 17:41 Home Meds: spironolactone 25 mg Oral tab 1 tab once daily; ko1 ko1 17:42 17:41 Home Meds: Lasix 40 mg Oral tab 1 tab once daily; ko1 ko1 21:51 20:47 cp cg 12/08 22:54 12/07 20:45 Data reviewed: vital signs, nurses notes, cp cp
[2022-12-07] MEDS ORDERED: NA CHLORIDE 0.9% 1,000 ML ONE (21:02)
--- NOTE | 2022-12-07 21:32 | P.HP ---
Certification for Inpatient Patient admitted to: Inpatient With expected LOS: >2 Midnights Patient will require the following post-hospital care: None Practitioner: I am a practitioner with admitting privileges, knowledge of patient current condition, hospital course, and medical plan of care. Services: Services provided to patient in accordance with Admission requirements found in Title 42 Section 412.3 of the Code of Federal Regulations <Alexander Bhandari - Last Filed: 12/07/22 21:28> Patient History Date of Service: 12/07/22 Reason for admission: Hyponatremia, CHF History of Present Illness: 52-year-old male with history of chronic diastolic congestive heart failure, paroxysmal atrial fibrillation on chronic anticoagulation, alcohol abuse presents the emergency department for abnormal outpatient labs. 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 He was evaluated here in the emergency department his labs were repeated showed a sodium of 124 chloride of 80 bicarb of 34 serum osmole 272 urine osmole 213 urine sodium 18 urine potassium 39 urine specific gravity 1.015. Patient also admits to drinking twelve 16 ounce beers per day his last drink was on 12/06/2022 at around 2 AM. He denies previous alcohol withdrawal symptoms when quitting cold turkey. ED provider reached out to patient's cyber security engineer who recommended NS at 50 cc/h with repeat chemistries. Will admit for further evaluation and management of hyponatremia, CHF. 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[employer], lives at home with his - Family History Father -: Heart disease Mother -: Heart disease - Social History Smoking Status: Never smoker Alcohol use: Yes CD- Drugs: No Caffeine use: No Place of Residence: Home <Alexander Bhandari - Last Filed: 12/07/22 21:28> Date of Service: 12/08/22 <Santiago Dennis - Last Filed: 12/08/22 12:50> Allergies No Known Allergies Allergy (Verified 08/03/22 22:00) Home Medications: RX: Apixaban [Eliquis] 5 mg PO BID 30 Days #60 tab 08/04/22 RX: Furosemide [Lasix] 1 tab PO BID 30 Days #60 tab 08/04/22 RX: metOLazone [Metolazone] 5 mg PO M,W,F #20 09/05/22 Cyanocobalamin [Vitamin B-12*] 1 tab PO DAILY 12/08/22 Potassium Chloride [K-Dur] 40 meq PO BID 12/08/22 RX: Metoprolol Tartrate [Lopressor*] 50 mg PO BID 12/08/22 Review of Systems 10-point ROS is otherwise unremarkable Respiratory: SOB with Excertion Cardiovascular: Paroxysmal Noc. Dyspnea <Alexander Bhandari - Last Filed: 12/07/22 21:28> Physical Examination - Physical Exam General: Alert, In no apparent distress, Oriented x3 HEENT: Atraumatic, PERRLA, Mucous membr. moist/pink, EOMI, Sclerae nonicteric Neck: Supple, 2+ carotid pulse no bruit, No LAD, Without JVD or thyroid abnormality Respiratory: Clear to auscultation bilaterally, Normal air movement Cardiovascular: Regular rate/rhythm, Normal S1 S2, Edema Capillary refill: <2 Seconds Gastrointestinal: Normal bowel sounds, No tenderness Musculoskeletal: No tenderness Integumentary: No rashes Neurological: Normal speech, Normal strength at 5/5 x4 extr, Normal tone - Studies Laboratory Data (last 24 hrs) 12/07/22 19:18: WBC 6.40, Hgb 12.3 L, Hct 35.8 L, Plt Count 148 L 12/07/22 19:18: Sodium 124 L, Potassium 3.5 D, BUN 16, Creatinine 1.09, Glucose 119 H, Magnesium 1.6 <Alexander Bhandari - Last Filed: 12/07/22 21:28> - Studies Laboratory Data (last 24 hrs) 12/07/22 19:18: WBC 6.40, Hgb 12.3 L, Hct 35.8 L, Plt Count 148 L 12/07/22 19:18: Sodium 124 L, Potassium 3.5 D, BUN 16, Creatinine 1.09, Glucose 119 H, Magnesium 1.6 <Santiago Dennis - Last Filed: 12/08/22 12:50> Assessment and Plan - Plan Assessment: Moderate hyponatremia Diastolic congestive heart failure Chronic alcohol abuse Paroxysmal atrial fibrillation on chronic anticoagulation therapy Plan: Moderate hyponatremia: Is discussed with cardiology, patient is on diuretics including Lasix 40 mg twice daily, metolazone Saturday and Saturday 5 mg, denies any increasing shortness of breath or edema of the lower extremities, cardiology recommends NS infusion overnight at 50 cc/h, will recheck chemistry this evening to ensure sodium is not worsening. If there is significant worsening will consult nephrology, patient admits to being a daily drinker approximately twelve 16 ounce beers, he was counseled on the need for cessation and its likely contribution to his heart disease, hyponatremia. Diastolic congestive heart failure: Continue as above, cardiology consulted. Hold diuretics at this time. Chronic alcohol abuse: Alcohol withdrawal assessment, as needed Librium. Patient reports he has quit cold turkey in the past without serious side effects. Paroxysmal atrial fibrillation on chronic anticoagulation therapy: Continue Metoprolol, Eliquis. DVT PPX: Continue Eliquis Code status:full Discharge Plan: Home Plan to discharge in: 48 Hours - Advance Directives Does patient have a Living Will: No Does patient have a Durable POA for Healthcare: No - Code Status/Comfort Care Code Status Assessed: Yes (full code) Critical Care: No Time Spent Managing Pts Care (In Minutes): 55 <Alexander Bhandari - Last Filed: 12/07/22 21:28> Physician Review: Patient Assessed, Agree with Above Assessment and Plan <Santiago Dennis - Last Filed: 12/08/22 12:50>
[2022-12-07 23:08] VITALS: O2SAT 98
[2022-12-07] MEDS ORDERED: chlordiazePOXIDE HCl 5 MG CAP PO PRN (23:31)
[2022-12-07] MEDS ORDERED: NA CHLORIDE 0.9% 1,000 ML IV SCH (23:31)
[2022-12-07] MEDS ORDERED: ONDANSETRON 4 MG/2 ML VIAL IV PRN (23:31)
[2022-12-08 01:02] LABS: Potassium 2.9 mmol/L (3.5-5.1)
[2022-12-08 01:18] VITALS: BMI 56.7
[2022-12-08] MEDS: KCL 20 MEQ/100 mL IVPB 20 MEQ/100 ML BAG IV SCH ×3 (02:45→06:37)
[2022-12-08 05:12] LABS: Absolute Lymphocytes (CBC) 1.3 K/uL (0.7-4.9); Hematocrit 35.3 % (39.6-49.0); Lymphocytes % 22.7 % (15.3-44.8); MCV 92.1 fL (80-100); MPV 6.5 fL (7.6-11.3); RBC Red Blood Cell Count 3.83 M/uL (4.33-5.43)
[2022-12-08 05:33] LABS: Albumin 3.3 g/dL (3.4-5.0); Bilirubin Direct 0.8 mg/dL (0-0.2); Magnesium 1.8 mg/dL (1.6-2.4); Protein, Total 8.4 g/dL (6.4-8.2); Thyroid Stimulating Hormone 2.96 uIU/mL (0.358-3.740)
[2022-12-08 05:34] LABS: Potassium 2.7 mmol/L (3.5-5.1)
[2022-12-08] MEDS: METOPROLOL TAR 25 MG TAB PO SCH ×2 (06:35→17:17)
[2022-12-08] MEDS: APIXABAN 5 MG TABLET PO SCH ×2 (10:28→20:43)
[2022-12-08 11:45] LABS: Potassium 3.1 mmol/L (3.5-5.1)
--- NOTE | 2022-12-08 12:53 | P.PN ---
Subjective Date of Service: 12/08/22 Chief Complaint: Hyponatremia, CHF No acute events overnight. This morning, he states that he feels well. He is ambulating around his room this morning. He denies any chest pain, shortness of breath, or palpitations. Physical Examination - Vital Signs Temperature: 97.8 F Blood Pressure: 146/61 Pulse: 58 Respirations: 14 Pulse Ox (%): 99 - Studies Laboratory Data (last 24 hrs) 12/07/22 19:18: WBC 6.40, Hgb 12.3 L, Hct 35.8 L, Plt Count 148 L 12/07/22 19:18: Sodium 124 L, Potassium 3.5 D, BUN 16, Creatinine 1.09, Glucose 119 H, Magnesium 1.6 Assessment And Plan - Plan # Suspect Hypovolemic Hyponatremia - suspect secondary to Over-Diuresis - Suspect hypovolemia to be secondary to his home furosemide and metolazone - Consulted Nephrology and spoke with Dr. Fox - recommendations appreciated - Sodium level: 124 -> 126 -> 127 -> 130 - TSH: 2.96 - Continue Normal Saline @ 50 mL/hr for today - Resumption of diuretics per Nephrology and Cardiology # Chronic Compensated Decompensated Diastolic Congestive Heart Failure with Preserved Ejection Fraction # Severe Pulmonary Hypertension # Hypertension - Consult Cardiology - recommendations appreciated - Hold furosemide and metolazone given hyponatremia - Transthoracic echocardiogram (08/31/2022) = "poor windows. left ventricular ejection fraction appears overall normal. moderate concentric left ventricular hypertrophy with diastolic dysfunction. severe pulmonary hypertension with right ventricular systolic pressure of greater than 60 mmHg." - Chest x-ray = "Upper lobe vessels are prominent indicative of pulmonary venous hypertension. Lungs appear clear. The heart is moderately enlarged" - Daily weights - Strict I/O # Alcohol Use Disorder - Continue chlordiazepoxide - Ordered thiamine, folic acid # Chronic Atrial Fibrillation - Continue home metoprolol, apixaban # Tobacco Use Disorder - Tobacco cessation counseling provided - Nicotine patch available # Morbid Obesity - BMI 56.7 kg/m2 - Lifestyle modifications Santiago Dennis M.D.
--- NOTE | 2022-12-08 13:27 | P.CNS ---
Date of Consult: 12/08/22 Reason for Consult: Hyponatremia Requesting Physician: Santiago Dennis Chief Complaint: Hyponatremia, CHF History of Present Illness: 52-year-old male with history of chronic diastolic congestive heart failure, paroxysmal atrial fibrillation on chronic anticoagulation, alcohol abuse presents the emergency department for abnormal outpatient labs. 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 He was evaluated here in the emergency department his labs were repeated showed a sodium of 124 chloride of 80 bicarb of 34 serum osmole 272 urine osmole 213 urine sodium 18 urine potassium 39 urine specific gravity 1.015. Patient also admits to drinking twelve 16 ounce beers per day his last drink was on 12/06/2022 at around 2 AM. He denies previous alcohol withdrawal symptoms when quitting cold turkey. 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 Will admit for further evaluation and management of hyponatremia, CHF. Allergies No Known Allergies Allergy (Verified 08/03/22 22:00) Home medications list reviewed: Yes Home Medications: Apixaban [Eliquis] 5 mg PO BID 30 Days #60 tab 08/04/22 Furosemide [Lasix] 1 tab PO BID 30 Days #60 tab 08/04/22 metOLazone [Metolazone] 5 mg PO M,W,F #20 09/05/22 Cyanocobalamin [Vitamin B-12*] 1 tab PO DAILY 12/08/22 Metoprolol Tartrate [Lopressor*] 50 mg PO BID 12/08/22 Potassium Chloride [K-Dur] 40 meq PO BID 12/08/22 - Past Medical/Surgical History Diabetic: No -: Diastolic CHF -: Alcoholism -: HTN -: Paroxysmal Afib on chronic anticoagulation -: Hyponatremia/ Hypokalemia (Dr. 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[employer], lives at home with his - Family History Father Medical History: Heart disease Mother Medical History: Heart disease - Social History Alcohol use: Yes CD- Drugs: No Caffeine use: Yes Place of Residence: Home Review of Systems 10-point ROS is otherwise unremarkable Respiratory: SOB with Excertion Cardiovascular: Edema Physical Examination Temp Pulse Resp BP Pulse Ox 97.8 F 58 14 146/61 H 99 12/08/22 13:09 12/08/22 13:09 12/08/22 13:09 12/08/22 13:09 12/08/22 13:09 General: In no apparent distress, Oriented x3, Obese HEENT: Normocephalic Neck: Supple Respiratory: Clear to auscultation bilaterally Cardiovascular: Regular rate/rhythm, Edema Gastrointestinal: Soft and benign, Non-distended Musculoskeletal: No clubbing, No contractures Integumentary: No rashes, No cyanosis Neurological: Normal speech Laboratory Data (last 24 hrs) 12/07/22 19:18: WBC 6.40, Hgb 12.3 L, Hct 35.8 L, Plt Count 148 L 12/07/22 19:18: Sodium 124 L, Potassium 3.5 D, BUN 16, Creatinine 1.09, Glucose 119 H, Magnesium 1.6 Imagings Data: EXAM DESCRIPTION: [facility] Single View12/07/2022 7:52 pm CLINICAL HISTORY: Shortness of breath COMPARISON: 2021 FINDINGS: Upper lobe vessels are prominent indicative of pulmonary venous hypertension. Lungs appear clear. The heart is moderately enlarged COMMENTS: POOR WINDOWS. LEFT VENTRICULAR EJECTION FRACTION APPEARS OVERALL NORMAL. MODERATE CONCENTRIC LEFT VENTRICULAR HYPERTROPHY WITH DIASTOLIC DYSFUNCTION. SEVERE PULMONARY HYPERTENSION WITH RIGHT VENTRICULAR SYSTOLIC PRESSURE OF GREATER THAN 60 mmHg. Conclusions/Impression: Hyponatremia in the setting of metolazone -Discontinue IVF -Discontinue Metolazone -Encourage nutrition Hypokalemia in the setting of diuretics -Replete potassium -Start spironolactone Alkalosis complicated by hypokalemia -Replete potassium HTN with CHF -Continue Metoprolol Diastolic CHF, chronic LVEF 60% Severe Pulmonary HTN -Daily weight -Discontinue IVF -May benefit from a Lasix/ Spironolactone combination as an outpt Anemia in chronic illness -Monitor H&H Alcoholism -Continue Librium -Continue Thiamine and Folic Acid Case reviewed with Dr. Dennis Thank you kindly for the consultation
[2022-12-08] MEDS ORDERED: POTASSIUM CL SA 10 MEQ TAB PO ONE ×3 (14:10→19:42)
[2022-12-08] MEDS: FOLIC ACID 1 MG TABLET PO SCH (14:16)
[2022-12-08] MEDS: THIAMINE HCL 100 MG TABLET PO SCH (14:16)
[2022-12-08 18:01] LABS: Potassium 3.5 mmol/L (3.5-5.1)
[2022-12-08] MEDS: SPIRONOLACTONE 25 MG TABLET PO SCH (20:42)
[2022-12-09] MEDS: METOPROLOL TAR 25 MG TAB PO SCH (05:17)
[2022-12-09 06:17] LABS: Phosphorus 3.5 mg/dL (2.5-4.9); Potassium 3.1 mmol/L (3.5-5.1); Uric Acid 9.8 mg/dL (3.5-7.2)
[2022-12-09] MEDS ORDERED: NA CHLORIDE 0.9% 250 ML ONE ×2 (07:35→12:10)
[2022-12-09] MEDS: KCL 20 MEQ/100 mL IVPB 20 MEQ/100 ML BAG IV SCH ×2 (07:36→10:54)
[2022-12-09] MEDS: FOLIC ACID 1 MG TABLET PO SCH (08:54)
[2022-12-09] MEDS: SPIRONOLACTONE 25 MG TABLET PO SCH (08:55)
[2022-12-09] MEDS: APIXABAN 5 MG TABLET PO SCH (08:55)
[2022-12-09] MEDS: THIAMINE HCL 100 MG TABLET PO SCH (08:55)
[2022-12-09] MEDS ORDERED: FUROSEMIDE 40 MG TABLET PO SCH (09:00)
[2022-12-09] MEDS ORDERED: POTASSIUM CL SA 10 MEQ TAB PO SCH (09:00)
[2022-12-09 11:59] VITALS: BP 116/60; TEMP 97.7
--- NOTE | 2022-12-09 14:47 | P.DS ---
Admission Date: 12/07/22 Discharge Date: 12/09/22 Disposition: ROUTINE DISCHARGE Discharge Condition: GOOD Reason for Admission: Hyponatremia, CHF Consultations: 1. Cardiology 2. Nephrology Hospital Course: DIAGNOSES: # Suspect Hypovolemic Hyponatremia - suspect secondary to Over-Diuresis # Hypokalemia secondary to Over-Diuresis # Chronic Compensated Diastolic Congestive Heart Failure with Preserved Ejection Fraction # Severe Pulmonary Hypertension # Hypertension # Alcohol Use Disorder # Chronic Atrial Fibrillation # Tobacco Use Disorder # Morbid Obesity - BMI 56.7 kg/m2 HOSPITAL COURSE: Mr. Salvador Catherine is a pleasant 52-year-old male with a past medical history significant for chronic diastolic congestive heart failure, alcohol use disorder, severe pulmonary hypertension, hypertension, chronic atrial fibrillation, and tobacco use disorder who was admitted to the [facility] on 12/07/2022 for abnormal lab studies. He was admitted to the Medicine service. Upon presentation, he was found to have hyponatremia with a sodium of 124. Cardiology and Nephrology were consulted and he was evaluated by Dr. Elmore and Dr. Fox, respectively. Upon further evaluation, it was thought that his hyponatremia was secondary to hypovolemia from overdiuresis. He was started on gentle IV hydration with normal saline, with gradual improvement of his sodium levels. This morning, he stated that he feels well and would like to be discharged home. Dr. Elmore has cleared him for discharge home with the discontinuation of metolazone. Dr. Fox has cleared him for discharge home with furosemide 40 mg twice daily, spironolactone 25 mg twice daily, and potassium chloride [address] Fox will schedule him for an outpatient follow-up with repeat labs in the next week On 12/09/2022, he was seen on rounds and deemed medically stable for discharge. He was discharged with instructions to schedule follow-up appointments with his PCP, with Cardiology (Dr. Elmore), and with Nephrology (Dr. Fox). He was provided prescriptions for spironolactone and potassium chloride. He was given the opportunity to ask questions and reported no further questions. Furthermore, all questions were answered to the best of my ability. A copy of this discharge summary will be sent to the above providers to facilitate continuity of care. Today, I personally spent 25 minutes on his case, of which greater than 50% of the time was spent in patient education, counseling, and coordination of care as described above. Vital Signs/Physical Exam: Temp Pulse Resp BP Pulse Ox 97.7 F 68 16 116/60 100 12/09/22 11:58 12/09/22 11:58 12/09/22 11:58 12/09/22 11:58 12/09/22 11:58 General: Alert, In no apparent distress, Oriented x3 HEENT: Atraumatic, Mucous membr. moist/pink, EOMI, Sclerae nonicteric Neck: JVD not distended Respiratory: Clear to auscultation bilaterally, Normal air movement Cardiovascular: No edema, Regular rate/rhythm, Normal S1 S2, No gallops, No r ubs, No murmurs Gastrointestinal: Normal bowel sounds, Soft and benign, Non-distended, No tenderness, No rebound, No guarding Musculoskeletal: No clubbing Integumentary: No rashes Neurological: Normal speech, Normal affect Laboratory Data at Discharge: WBC 5.90 K/uL (4.3-10.9) 12/08/22 04:41 Hgb 11.9 g/dL (13.6-17.9) L 12/08/22 04:41 Hct 35.3 % (39.6-49.0) L 12/08/22 04:41 Plt Count 148 K/uL (152-406) L 12/08/22 04:41 Sodium 132 mmol/L (136-145) L 12/09/22 05:48 Potassium 3.1 mmol/L (3.5-5.1) L 12/09/22 05:48 BUN 16 mg/dL (7-18) 12/09/22 05:48 Creatinine 0.93 mg/dL (0.70-1.30) 12/09/22 05:48 Glucose 115 mg/dL (74-106) H 12/09/22 05:48 Uric Acid 9.8 mg/dL (3.5-7.2) H 12/09/22 05:48 Phosphorus 3.5 mg/dL (2.5-4.9) 12/09/22 05:48 Magnesium 2.0 mg/dL (1.6-2.4) 12/09/22 05:48 Total Bilirubin 2.0 mg/dL (0.2-1.0) H 12/08/22 04:41 AST 19 U/L (15-37) 12/08/22 04:41 ALT 14 U/L (16-61) L 12/08/22 04:41 Alkaline Phosphatase 95 U/L (45-117) 12/08/22 04:41 Triglycerides 47 mg/dL (<150) 12/08/22 04:41 Cholesterol 179 mg/dL (<200) 12/08/22 04:41 HDL Cholesterol 86 mg/dL (40-60) H 12/08/22 04:41 Cholesterol/HDL Ratio 2.08 12/08/22 04:41 Home Medications: Apixaban [Eliquis] 5 mg PO BID 30 Days #60 tab 08/04/22 Furosemide [Lasix] 1 tab PO BID 30 Days #60 tab 08/04/22 Cyanocobalamin [Vitamin B-12*] 1 tab PO DAILY 12/08/22 Metoprolol Tartrate [Lopressor*] 50 mg PO BID 12/08/22 Potassium Chloride 40 meq PO DAILY #60 tab 12/09/22 Spironolactone [Aldactone*] 25 mg PO BID #60 tab 12/09/22 Thiamine HCl [Vitamin B-1*] 100 mg PO DAILY 12/09/22 New Medications: Spironolactone [Aldactone*] 25 mg PO BID #60 tab Potassium Chloride 40 meq PO DAILY #60 tab Physician Discharge Instructions: 1. Please call and schedule a follow-up appointment with your PCP in 3-5 days 2. Please call and schedule a follow-up appointment with Cardiology (Dr. Elmore) in 5-7 days 3. Please call and schedule a follow-up appointment with Nephrology (Dr. Fox) in 5-7 days - Please schedule repeat blood work prior to this appointment Diet: AHA Activity: Ad george Followup: Ariel Watkins MD [ACTIVE - CAN ADMIT] - Montez Elmore MD [Primary Care Provider] - Time spent managing pt's care (in minutes): 25
--- NOTE | 2022-12-09 19:09 | P.PN ---
Date of Service: 12/09/22 Vital Signs Temp Pulse Resp BP Pulse Ox 97.7 F 68 16 116/60 100 12/09/22 11:58 12/09/22 11:58 12/09/22 11:58 12/09/22 11:58 12/09/22 11:58 Assessment/ Plan: Nephrology No dyspnea No chest pain No acute events overnight Vitals, medications, blood work and imaging reviewed in the chart. General: In no apparent distress, Oriented x3, Obese HEENT: Normocephalic Neck: Supple Respiratory: Clear to auscultation bilaterally Cardiovascular: Regular rate/rhythm, Edema Gastrointestinal: Soft and benign, Non-distended Musculoskeletal: No clubbing, No contractures Integumentary: No rashes, No cyanosis Neurological: Normal speech Laboratory Data (last 24 hrs) 12/07/22 19:18: WBC 6.40, Hgb 12.3 L, Hct 35.8 L, Plt Count 148 L 12/07/22 19:18: Sodium 124 L, Potassium 3.5 D, BUN 16, Creatinine 1.09, Glucose 119 H, Magnesium 1.6 Imagings Data: EXAM DESCRIPTION: [facility] Single View12/07/2022 7:52 pm CLINICAL HISTORY: Shortness of breath COMPARISON: 2021 FINDINGS: Upper lobe vessels are prominent indicative of pulmonary venous hypertension. Lungs appear clear. The heart is moderately enlarged COMMENTS: POOR WINDOWS. LEFT VENTRICULAR EJECTION FRACTION APPEARS OVERALL NORMAL. MODERATE CONCENTRIC LEFT VENTRICULAR HYPERTROPHY WITH DIASTOLIC DYSFUNCTION. SEVERE PULMONARY HYPERTENSION WITH RIGHT VENTRICULAR SYSTOLIC PRESSURE OF GREATER THAN 60 mmHg. Conclusions/Impression: Hyponatremia in the setting of metolazone -Discontinue IVF -Discontinue Metolazone due to electrolyte abnormalities -Encourage nutrition Hypokalemia in the setting of diuretics -Replete potassium -Continue spironolactone Alkalosis complicated by hypokalemia -Replete potassium HTN with CHF -Continue Metoprolol RACHEL but does not tolerated CPAP -Recommend a reevaluation for his RACHEL treatment Diastolic CHF, chronic LVEF 60% Severe Pulmonary HTN -Daily weight -Discontinue IVF -May benefit from a Lasix/ Spironolactone combination as an outpt Anemia in chronic illness -Monitor H&H Chronic Alcoholism -Continue Librium -Continue Thiamine and Folic Acid -Recommend alcohol cessation Morbid Obesity due to excess beer intake -Recommend alcohol cessation -Recommend a no sugar/ low carb diet Case reviewed with Dr. Dennis
== END 2022-12-09 15:00 | disposition home or self-care (01) | DRG 641 ==
LOC: ER 16:53 → ERHOLD 21:21 → 2ND 22:42
PROVIDERS: ADMIT Internal Medicine; ATTEND Internal Medicine
DX: E87.1 Hypo-osmolality and hyponatremia (principal); I50.32 Chronic diastolic (congestive) heart failure; Z68.43 Body mass index [BMI] 50.0-59.9, adult; I11.0 Hypertensive heart disease with heart failure; I48.0 Paroxysmal atrial fibrillation; E66.01 Morbid (severe) obesity due to excess calories; E87.6 Hypokalemia; I27.20 Pulmonary hypertension, unspecified; E86.1 Hypovolemia; E87.3 Alkalosis; G47.33 Obstructive sleep apnea (adult) (pediatric); D63.8 Anemia in other chronic diseases classified elsewhere; F10.20 Alcohol dependence, uncomplicated; Z71.41 Alcohol abuse counseling and surveillance of alcoholic; Z72.0 Tobacco use; Z71.6 Tobacco abuse counseling; Z79.01 Long term (current) use of anticoagulants; Z82.49 Family history of ischemic heart disease and other diseases of the circulatory system
CPT/HCPCS: 36415; 71045; 80048; 80061; 80076; 81003; 82435; 83735; 83880; 83930; 83935; 84100; 84132; 84300; 84403; 84439; 84443; 84550; 85025; 87811; 93005; 99285; J3480; J7030; J7050

== ENCOUNTER 2023-08-13 14:00 | Emergency (ER) | payer BC, SELFPAY ==
--- OUTSIDE RECORDS SUMMARY | 2023-08-13 14:03 | XMS REPORT | Continuity of Care Document ---
:1970 Author Organization [facility] t Address [address] [place] [address] Care Team Providers Name Role Phone JEFFRY RUBIO Attending Clinician Unavailable Paulo_F Attending Clinician Unavailable Analy Attending Clinician Unavailable Bhupendra Admitting Clinician Unavailable Analy Admitting Clinician Unavailable Payers Payer Name Policy Type Policy Number Effective Date Expiration Date S ource BCBS 2 [id number] 2022 00:00:00 [place] [id number] [place] Problems Condition Condition Condition Status [...] 2021-11 Cyril cook CHF with CHF with -07 Seybol d preserved preserved 00:00: - left [...] Externa l Chronic Chronic Disease Active 2021-11 Audra bilateral bilateral 11-10 Seyb old low back [...] 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 MARTHAOH Audra Coates ld - [...] 16 daily Externa l metOLazone 2021-11 Yes [id number] Every K elsey 5 MG oral 11-10, Seybold Tablet 00:00: Saturday - and Saturday Externa l Furosemide 2021-11 Yes [id number] 40mg Take 1 Audra 40 MG oral [...] Department ID 2022-10-08 2022-10-08 Outpatient AUDRA RUBIO [id number] Audra 08:15:00 08:15:00 JEFFRY Tejedaol d 2022-09-10 2022-09-10 Outpatient AUDRA RUBIO [id number] Audra 14:00:00 14:00:00 JEFFRY Seybol d 2021-10-20 2021-10-20 Outpatient Zuniga_F [facility] [id number] [place] 12:57:00 12:57:00 [id number] 2020-09-21 2020-09-21 Outpatient Brown_R [facility] [id number] [place] 02:49:00 02:49:00 [id number] Results This patient has no known results.
--- NOTE | 2023-08-13 17:10 | RAD REPORT ---
EXAM DESCRIPTION: RADChest Single View08/13/2023 4:58 pm CLINICAL HISTORY: chf COMPARISON: Chest Single View dated 12/07/2022; Chest Single View dated 09/04/2022; Chest Single View d ated 08/29/2022; Chest Single View dated 08/03/2022 TECHNIQUE: Portable AP view of the chest. FINDINGS: The lungs show no focal consolidation. Central interstitial prominence, stable, and may re flect central congestion/CHF. No pneumothorax or effusion. Stable cardiomegaly. Mediastinal contours are unremarkable. IMPRESSION: Stable findings as above. .
--- NOTE | 2023-08-13 17:11 | RAD REPORT ---
EXAM DESCRIPTION: RAD - Knee Right 3 View - 08/13/2023 4:59 pm CLINICAL HISTORY: PAIN COMPARISON: No comparisons TECHNIQUE: Right knee, 3 views. FINDINGS: No fracture, dislocation or periosteal reaction.Small joint effusion seen. Sitj-xy-hmbiewj e joint space narrowing, most notably at the patellofemoral articulation. No soft tissue abnormality. Enthesopathy at the quadriceps tendon attachment. IMPRESSION: No acute osseus abnormality. Small joint effusion. Degenerative changes as above.
[2023-08-13 17:16] LABS: Absolute Lymphocytes (CBC) 1.5 K/uL (0.7-4.9); Hematocrit 39.1 % (39.6-49.0); Lymphocytes % 21.3 % (15.3-44.8); MCV 101.3 fL (80-100); Platelets 136 thou/uL (152-406); RBC Red Blood Cell Count 3.86 M/uL (4.33-5.43)
[2023-08-13 17:35] LABS: Albumin 3.3 g/dL (3.4-5.0); Bilirubin Direct 0.5 mg/dL (0-0.2); Bilirubin Indirect, Calculated 0.8 mg/dL (0.2-0.8); Bilirubin Total 1.3 mg/dL (0.2-1.0); Protein, Total 8.9 g/dL (6.4-8.2); Troponin High Sensitivity 15.6 pg/mL (<58.9)
[2023-08-13] MEDS ORDERED: FUROSEMIDE 40 MG/4 ML VIAL ONE (17:55)
[2023-08-13] MEDS ORDERED: IBUPROFEN 400 MG TAB ONE (18:28)
--- NOTE | 2023-08-13 18:48 | EDPHYS ---
Physician Documentation [facility] Name: Salvador Catherine Jr Age: 52 yrs Sex: Male : 1970 Arrival Date: 08/13/2023 Time: 14:00 Bed 7 Private MD: ED Physician Jose L Laughlin HPI: 08/13 18:25 This 52 yrs old Male presents to ER via Wheelchair with complaints of Breathing rt Difficulty, Shortness Of Breath. 18:25 Patient presents to the ED with swelling, difficulty breathing progressively worsening rt for the past 2 weeks. He has been off of his spironolactone. Patient does report a history of CHF. He reports paroxysmal nocturnal dyspnea. Cannot lie flat. Denies other acute complaints at this time other than the right knee pain. States that he has gained about 15 pounds of water weight. Symptoms are moderate severity, no other aggravating or alleviating factors.. Historical: - Allergies: 14:26 No Known Allergies; nj1 - PMHx: 14:26 Atrial fibrillation; Bialteral leg edema; Congestive heart failure; Hypertensive nj1 disorder; Sleep apnea; - PSHx: 14:26 None; nj1 - Immunization history:: Client reports having NOT received the Covid vaccine. - Social history:: Smoking status: Patient denies any tobacco usage or history of. Patient uses alcohol, on a daily basis. - Family history:: not pertinent. ROS: 18:25 Constitutional: Negative for fever, chills, and weight loss, Abdomen/GI: Negative for rt abdominal pain, nausea, vomiting, diarrhea, and constipation, Skin: Negative for injury, rash, and discoloration, Neuro: Negative for headache, weakness, numbness, tingling, and seizure, Psych: Negative for depression, anxiety, suicide ideation, homicidal ideation, and hallucinations, 18:25 Cardiovascular: Positive for edema, paroxysmal nocturnal dyspnea, 18:25 Respiratory: Positive for cough, shortness of breath, 18:25 MS/extremity: Positive for pain, swelling, Exam: 18:25 Constitutional: This is a well developed, well nourished patient who is awake, alert, rt and in no acute distress. Head/Face: Normocephalic, atraumatic. Chest/axilla: Normal chest wall appearance and motion. Nontender with no deformity. No lesions are appreciated. Cardiovascular: Regular rate and rhythm with a normal S1 and S2. No gallops, murmurs, or rubs. Normal PMI, no JVD. No pulse deficits. Skin: Warm, dry with normal turgor. Normal color with no rashes, no lesions, and no evidence of cellulitis. Neuro: Awake and alert, GCS 15, oriented to person, place, time, and situation. Cranial nerves II-XII grossly intact. Motor strength 5/5 in all extremities. Sensory grossly intact. Cerebellar exam normal. Normal gait. Psych: Awake, alert, with orientation to person, place and time. Behavior, mood, and affect are within normal limits. 18:25 ECG was reviewed by the Attending Physician. 18:25 Respiratory: Bibasilar crackles, 18:25 Abdomen/GI: Abdominal wall edema noted, mild tenderness diffusely without focality, 18:25 Musculoskeletal/extremity: 4+ pitting bilateral lower extremity edema. Vital Signs: 14:23 BP 123 / 56; Pulse 75; Resp 18; Temp 98.1(TE); Pulse Ox 100% ; Weight 186.43 kg; Height nj1 5 ft. 11 in. ; Pain 5/10; 16:22 BP 131 / 76; Resp 19; Temp 98; Pulse Ox 98% on R/A; rs5 17:18 BP 119 / 71; Pulse 72; Resp 18; Pulse Ox 99% on R/A; rs5 18:20 BP 115 / 70; Pulse 71; Resp 18; Pulse Ox 98% on R/A; rs5 14:23 Body Mass Index 57.32 (186.43 kg, 180.34 cm) nj1 14:23 Pain Scale: Adult nj1 MDM: 16:09 Patient medically screened. rt 20:07 Differential diagnosis: CHF, volume overload, medication nonadherence, electrolyte rt disturbance. Data reviewed: vital signs, nurses notes, lab test result(s), EKG, radiologic studies. Consideration of Admission/Observation Escalation of care including admission/observation considered. Offered patient admission to the hospital, he is strongly desirous of discharge, will send patient home on diuretics, strict return precautions were discussed. I considered the following discharge prescriptions or medication management in the emergency department Medications were administered in the Emergency Department. See MAR. Independent interpretation of the following test(s) in the Emergency Department X-Ray: My interpretation is Cardiomegaly seen on interpretation of x-ray images. Test considered but Not performed: CT: Low suspicion for PE, CT angiogram not indicated. Care significantly affected by the following chronic conditions: Congestive Heart Failure. Counseling: I had a detailed discussion with the patient and/or guardian regarding the historical points, exam findings, and any diagnostic results supporting the discharge/admit diagnosis, lab results, radiology results, the need for outpatient follow up, to return to the emergency department if symptoms worsen or persist or if there are any questions or concerns that arise at home. 08/13 16:24 Order name: Basic Metabolic Panel; Complete Time: 17:35 rt 08/13 16:24 Order name: CBC with Diff; Complete Time: 17:35 rt 08/13 16:24 Order name: LFT's; Complete Time: 17:35 rt 08/13 16:24 Order name: Magnesium; Complete Time: 17:35 rt 08/13 16:24 Order name: NT PRO-BNP; Complete Time: 17:35 rt 08/13 16:24 Order name: Troponin HS; Complete Time: 17:35 rt 08/13 16:24 Order name: XRAY Chest (1 view); Complete Time: 17:16 rt 08/13 16:24 Order name: Knee Right 3 View XRAY; Complete Time: 17:16 rt 08/13 16:24 Order name: EKG; Complete Time: 16:25 rt 08/13 16:24 Order name: Cardiac monitoring; Complete Time: 16:29 rt 08/13 16:24 Order name: EKG - Nurse/Tech; Complete Time: 16:29 rt 08/13 16:24 Order name: IV Saline Lock; Complete Time: 17:07 rt 08/13 16:24 Order name: Labs collected and sent; Complete Time: 17:07 rt 08/13 16:24 Order name: O2 Per Protocol; Complete Time: 16:29 rt 08/13 16:24 Order name: O2 Sat Monitoring; Complete Time: 16:29 rt EC:25 Rate is 69 beats/min. Rhythm is irregular, A flutter with No ectopy, Nonspecific ST and rt T wave changes. QRS Pitman is Normal. QRS interval is normal. QT interval is normal. No Q waves. Administered Medications: 17:55 Drug: Furosemide IVP 40 mg IVP once; give over 2 minutes Route: IVP; Site: left forearm;rs5 18:15 Follow up: Response: No adverse reaction rs5 18:19 Drug: Ibuprofen PO 800 mg PO once Route: PO; rs5 19:00 Follow up: Response: No adverse reaction; Pain is decreased rs5 Disposition Summary: 08/13/23 18:48 Discharge Ordered Notes: Location: Home rt Problem: an acute exacerbation rt Symptoms: have improved rt Condition: Stable rt Diagnosis - Systolic (congestive) heart failure rt Followup: rt - With: Private Physician - When: 2 - 3 days - Reason: Discharge Instructions: - Discharge Summary Sheet rt - Edema rt Forms: - Medication Reconciliation Form rt - Thank You Letter rt - Antibiotic Education rt - Prescription Opioid Use rt - Patient Portal Instructions rt - Leadership Thank You Letter rt Prescriptions: - Lasix 20 mg Oral tablet - take 1 tablet ORAL route 2 times per day; 60 tablet; Refills: 0, Product rt Selection Permitted - Spironolactone 25 mg Oral tablet - take 1 tablet ORAL route daily; 30 tablet; Refills: 0, Product Selection rt Permitted Signatures: Dispatcher [employer] [facility] Jose L Laughlin MD MD rt Noel Banuelos RN RN rs5 Jesenia Rubio RN RN nj1 Corrections: (The following items were deleted from the chart) 16:32 14:26 Immunization history: Client reports having NOT received the Covid vaccine. nj1 rs5 16:32 14:26 Social history: Smoking status: Patient denies any tobacco usage or history of. rs5 Patient uses alcohol, on a daily basis. nj1
--- NOTE | 2023-08-13 18:48 | ER ---
Nurse's Notes [facility] Name: aSlvador Catherine Jr Age: 52 yrs Sex: Male : 1970 Arrival Date: 08/13/2023 Time: 14:00 Bed 7 Private MD: Diagnosis: Systolic (congestive) heart failure Presentation: 08/13 14:23 Chief complaint: Patient states: Shortness of breath for 2 weeks, getting worse, has nj1 gained about 15 lbs. Coronavirus screen: Vaccine status: Patient reports being unvaccinated. Ebola Screen: Patient denies travel to an Ebola-affected area in the 21 days before illness onset. Initial Sepsis Screen: Does the patient meet any 2 criteria? No. Patient's initial sepsis screen is negative. Does the patient have a suspected source of infection? No. Patient's initial sepsis screen is negative. Risk Assessment: Do you want to hurt yourself or someone else? Patient reports no desire to harm self or others. Onset of symptoms was August 2023. 14:23 Method Of Arrival: Wheelchair nj 14:23 Acuity: YULY 3 nj1 Triage Assessment: 16:25 General: Appears in no apparent distress. uncomfortable, Behavior is calm, cooperative. rs5 Respiratory: 16:25 Respiratory: Reports shortness of breath on exertion. rs5 19:21 Respiratory: Reports. rs5 Historical: - Allergies: 14:26 No Known Allergies; nj1 - PMHx: 14:26 Atrial fibrillation; Bialteral leg edema; Congestive heart failure; Hypertensive nj1 disorder; Sleep apnea; - PSHx: 14:26 None; nj1 - Immunization history:: Client reports having NOT received the Covid vaccine. - Social history:: Smoking status: Patient denies any tobacco usage or history of. Patient uses alcohol, on a daily basis. - Family history:: not pertinent. Screenin:22 [facility] ED Fall Risk Assessment (Adult) History of falling in the last 3 months, rs5 including since admission No falls in past 3 months (0 pts) Confusion or Disorientation No (0 pts) Intoxicated or Sedated No (0 pts) Impaired Gait Yes (1 pt) Mobility Assist Device Used Yes (1 pt) Altered Elimination No (0 pt) Score/Fall Risk Level 0 - 2 = Low Risk Oriented to surroundings, Maintained a safe environment. 16:22 Abuse screen: Denies threats or abuse. Nutritional screening: No deficits noted. rs5 Tuberculosis screening: No symptoms or risk factors identified. Assessment: 16:20 Reassessment: Pt arrived in room via wheelchair. rs5 16:22 General: Appears in no apparent distress. uncomfortable, Behavior is calm, cooperative. rs5 Pain: Complains of pain in right knee Pain does not radiate. Pain currently is 5 out of 10 on a pain scale. Quality of pain is described as aching, Pain began 2-3 days ago. Is continuous, Aggravated by repositioning, weight bearing. Neuro: Level of Consciousness is awake, alert, obeys commands, Oriented to person, place, time, situation. Cardiovascular: Denies chest pain, Rhythm is atrial flutter 2:1. Cardiovascular: Heart tones S1 S2 S3 present Rhythm is. Respiratory: Airway is patent Respiratory effort is even, labored, Breath sounds with crackles bilaterally. GI: Abdomen is distended, obese, Bowel sounds present X 4 quads. abdomen is tight on palpation in all four quadrants. : No signs and/or symptoms were reported regarding the genitourinary system. EENT: No signs and/or symptoms were reported regarding the EENT system. Derm: Skin is pink, warm \\T\\ dry. Musculoskeletal: Range of motion: limited in right knee swelling and tightness noted to lower extremities bilat. Pt states "my legs have been like this for past three weeks, worse today". 16:22 Reassessment: Pt states "I ran out of diuretic medication three weeks ago" . rs5 17:15 Reassessment: Patient and/or family updated on plan of care and expected duration. Pain rs5 level reassessed. Patient is alert, oriented x 3, equal unlabored respirations, skin warm/dry/pink. Cardiovascular: Rhythm is regular. 18:00 Pain: Complains of pain in right knee Pain does not radiate. Pain currently is 9 out of rs5 10 on a pain scale. Quality of pain is described as aching, Is continuous. 18:01 Reassessment: Provider notified pt is experiencing pain . rs5 18:19 Reassessment: To bedside for med adm. rs5 19:00 Reassessment: Patient states symptoms have improved. Pain: Complains of pain in right rs5 knee Pain currently is 4 out of 10 on a pain scale. Quality of pain is described as aching, Is continuous. 19:20 Reassessment: Patient and/or family updated on plan of care and expected duration. Pain rs5 level reassessed. Cardiovascular: Rhythm is regular. Respiratory: Respiratory effort is even, labored. Vital Signs: 14:23 BP 123 / 56; Pulse 75; Resp 18; Temp 98.1(TE); Pulse Ox 100% ; Weight 186.43 kg; Height nj1 5 ft. 11 in. ; Pain 5/10; 16:22 BP 131 / 76; Resp 19; Temp 98; Pulse Ox 98% on R/A; rs5 17:18 BP 119 / 71; Pulse 72; Resp 18; Pulse Ox 99% on R/A; rs5 18:20 BP 115 / 70; Pulse 71; Resp 18; Pulse Ox 98% on R/A; rs5 14:23 Body Mass Index 57.32 (186.43 kg, 180.34 cm) nj1 14:23 Pain Scale: Adult [facility] ED Course: 14:04 Patient arrived in ED. kj1 14:12 Jose L Laughlin MD is Attending Physician. rt 14:26 Triage completed. nj1 14:27 Arm band placed on left wrist. nj1 16:17 Noel Banuelos, PIPPA is Primary Nurse. rs5 16:22 Patient has correct armband on for positive identification. Bed in low position. Call rs5 light in reach. Side rails up X2. 17:00 XRAY Chest (1 view) In Process Unspecified. EDMS 17:00 Knee Right 3 View XRAY In Process Unspecified. EDMS 17:07 Inserted saline lock: 22 gauge in right forearm, using aseptic technique. Blood ds4 collected. 19:15 No provider procedures requiring assistance completed. rs5 19:15 IV discontinued, intact, bleeding controlled, No redness/swelling at site. Pressure rs5 dressing applied. Administered Medications: 17:55 Drug: Furosemide IVP 40 mg IVP once; give over 2 minutes Route: IVP; Site: left forearm;rs5 18:15 Follow up: Response: No adverse reaction rs5 18:19 Drug: Ibuprofen PO 800 mg PO once Route: PO; rs5 19:00 Follow up: Response: No adverse reaction; Pain is decreased rs5 Medication: 19:15 VIS not applicable for this client. rs5 Outcome: 18:48 Discharge ordered by . rt 19:15 Discharged to home ambulatory, rs5 19:15 Condition: stable 19:15 Discharge instructions given to patient, Instructed on discharge instructions, follow up and referral plans. medication usage, Demonstrated understanding of instructions, follow-up care, medications, Prescriptions given X 2, 19:18 Patient left the ED. rs5 Signatures: Dispatcher [employer] EDMS Trevin Benavides ds4 Jean ClaudeValeria kj1 Jose L Laughlin MD MD rt Noel Banuelos RN RN rs5 Jesenia Rubio RN RN nj1 Corrections: (The following items were deleted from the chart) 14:28 14:23 Pulse 75bpm; Resp 18bpm; Pulse Ox 100%; Temp 98.1F Temporal; 186.43 kg; Height 5 nj1 ft. 11 in.; BMI: 57.3; Pain 5/10, Adult; nj1 16:32 14:26 Immunization history: Client reports having NOT received the Covid vaccine. ga1 rs5 16:32 14:26 Social history: Smoking status: Patient denies any tobacco usage or history of. rs5 Patient uses alcohol, on a daily basis. nj1 16:33 16:30 BP 131 / 76; Resp 19bpm; Pulse Ox 98% RA; Temp 98F; rs5 rs5 18:20 18:00 Pain: Complains of pain in right knee Pain does not radiate. Pain currently is 9 rs5 out of 10 on a pain scale. Quality of pain is described as aching, Is continuous, rs5 19:21 17:15 Reassessment: No changes from previously documented assessment. rs5 rs5
[2023-08-13 20:10] VITALS: TEMP 98
[2023-08-13 20:21] VITALS: BP 115/70; O2SAT 98
--- NOTE | 2023-08-14 12:36 | EKG ---
Test Date: 2023-08-13 Test Time: 16:19:59 Head Stock Operator: SABINE MEASUREMENT RESULTS: Intervals: Rate: 69 CA: QRSD: 100 QT: 448 QTc: 480 [place]: P: CA: QRS: 57 T: 27 INTERPRETIVE STATEMENTS: Atrial flutter with variable AV block Nonspecific ST and T wave abnormality Prolonged QT Abnormal ECG Compared to ECG 12/07/2022 19:31:46 Possible ischemia no longer present ST (T wave) deviation still present Electronically Signed On 08-14-23 12:35:41 CDT by Montez Elmore
== END 2023-08-13 19:18 | disposition home or self-care (01) ==
LOC: ER 14:00
DX: I50.20 Unspecified systolic (congestive) heart failure (principal); I10 Essential (primary) hypertension
CPT/HCPCS: 36415; 71045; 80048; 80076; 83735; 83880; 84484; 85025; 93005; J1940